=== PATIENT | male | born 1945 | race Caucasian/White ===

== ENCOUNTER 2016-11-21 12:42 | Inpatient (IN) | payer MEDICARE ==
[~2016-11-21] VITALS: Ht 182.9 cm; Wt 100.2 kg
[2016-11-21 13:40] LABS: BASOPHILS 0.3 % (0-2); EOSINOPHILS 0.7 % (0-7); HEMATOCRIT 54.8 % (42.0-54.0); HEMOGLOBIN 17.6 g/dL (13.5-17.5); IMMATURE GRANULOCYTES 0.3 % (0-5); LYMPHOCYTES 22.7 % (15-50); MCH 32.3 pg (26.0-34.0); MCHC 32.1 g/dL (31.0-37.0); MCV 100.6 fL (80.0-100.0); MEAN PLATELET VOLUME 13.4 fL (7.4-10.4); MONOCYTES 7.1 % (2-11); NEUTROPHILS 68.9 % (40-80); PLATELET COUNT 142 10x3/uL (130-400); RBC 5.45 10x6/uL (4.20-6.10); RDW 14.1 % (11.5-14.5); WBC 6.1 10x3/uL (4.8-10.8)
[2016-11-21 13:56] LABS: ALBUMIN 3.5 g/dL (3.4-5.0); ANION GAP 14.2 mmol/L (8-16); BILIRUBIN - TOTAL 0.9 mg/dL (0.2-1.3); CALCIUM 8.9 mg/dL (8.5-10.1); CARBON DIOXIDE 31.2 mmol/L (21.0-32.0); CREATININE - SERUM 1.6 mg/dL (0.6-1.3); POTASSIUM - SERUM 4.4 mmol/L (3.5-5.1); PROTEIN - SERUM 6.8 g/dL (6.4-8.2)
[2016-11-21 14:11] LABS: TROPONIN-I 0.038 ng/mL (0.000-0.060)
[2016-11-21 14:13] LABS: CREATINE KINASE 142 UL (21-232); PRO BNP 13016 pg/mL (0-125)
[2016-11-21 14:14] LABS: APTT 31.8 SECONDS (22.8-39.4); INR 1.11 (0.85-1.17); PROTIME 14.2 SECONDS (11.6-15.0)
[2016-11-21 16:17] LABS: HEMOGLOBIN A1C 6.3 % (4.8-6.0)
[2016-11-21 20:21] VITALS: BP 111/62
[2016-11-21 20:22] VITALS: BP 111/62; BMI 28.8
[2016-11-21 20:33] LABS: CKMB 4.4 U/L (0.0-3.6); CREATINE KINASE 109 UL (21-232); TROPONIN-I 0.039 ng/mL (0.000-0.060)
[2016-11-22 00:28] VITALS: BP 113/86
[2016-11-22 03:03] LABS: BASOPHILS 0 % (0-2); EOSINOPHILS 0.7 % (0-7); IMMATURE GRANULOCYTES 0.3 % (0-5); LYMPHOCYTES 23.5 % (15-50); MCH 31.8 pg (26.0-34.0); MCV 99.4 fL (80.0-100.0); MEAN PLATELET VOLUME 13.1 fL (7.4-10.4); MONOCYTES 9.6 % (2-11); NEUTROPHILS 65.9 % (40-80); PLATELET COUNT 127 10x3/uL (130-400); RBC 5.03 10x6/uL (4.20-6.10); RDW 13.9 % (11.5-14.5)
[2016-11-22 03:26] LABS: ALBUMIN 3.3 g/dL (3.4-5.0); ALKALINE PHOSPHATASE 72 U/L (46-116); ALT (SGPT) 37 U/L (10-68); CALC OSMOLALITY 286 mosm/kg (275-300); CALCIUM 8.7 mg/dL (8.5-10.1); CARBON DIOXIDE 32.7 mmol/L (21.0-32.0); CHLORIDE - SERUM 102 mmol/L (98-107); CHOL - HDL RATIO 2.6 ratio (2.3-4.9); CHOLESTEROL, TOTAL 94 mg/dL (0-200); CKMB 3.9 U/L (0.0-3.6); CREATINE KINASE 108 UL (21-232); CREATININE - SERUM 1.6 mg/dL (0.6-1.3); HDL CHOLESTEROL 36 mg/dL (32-96); LDL CHOLESTEROL 32 mg/dL (0-100); LDL-HDL RATIO 0.9 ratio (1.5-3.5); POTASSIUM - SERUM 4.4 mmol/L (3.5-5.1); PROTEIN - SERUM 6.2 g/dL (6.4-8.2); SODIUM 142 mmol/L (136-145); TRIGLYCERIDE 134 mg/dL (30-200); TROPONIN-I 0.053 ng/mL (0.000-0.060); UREA NITROGEN 22 mg/dL (7-18); eGFR NON AFRICAN AMERICAN 46 mL/min (90-120)
[2016-11-22 03:27] LABS: GLUCOSE 114 mg/dL (74-106)
[2016-11-22 04:13] VITALS: BP 122/91
[2016-11-22 08:29] LABS: CKMB 3.8 U/L (0.0-3.6); CREATINE KINASE 93 UL (21-232); TROPONIN-I 0.048 ng/mL (0.000-0.060)
[2016-11-22 08:36] VITALS: BP 127/85
[2016-11-22 11:28] VITALS: BP 112/79
[2016-11-22 17:04] VITALS: BP 91/50
[2016-11-22 20:32] VITALS: BP 108/83
[2016-11-23] VITALS (7 sets, daily range): BP systolic 102–143; BP diastolic 74–92
[2016-11-23 06:22] LABS: BASOPHILS 0 % (0-2); EOSINOPHILS 0 % (0-7); HEMATOCRIT 52.1 % (42.0-54.0); HEMOGLOBIN 16.4 g/dL (13.5-17.5); IMMATURE GRANULOCYTES 0.2 % (0-5); LYMPHOCYTES 11.4 % (15-50); MCHC 31.5 g/dL (31.0-37.0); MEAN PLATELET VOLUME 13.3 fL (7.4-10.4); MONOCYTES 3.5 % (2-11); NEUTROPHILS 84.9 % (40-80); PLATELET COUNT 133 10x3/uL (130-400); RBC 5.13 10x6/uL (4.20-6.10); RDW 13.9 % (11.5-14.5); WBC 4.8 10x3/uL (4.8-10.8)
[2016-11-23 06:23] LABS: MCV 101.6 fL (80.0-100.0)
[2016-11-23 06:39] LABS: ALBUMIN 3.1 g/dL (3.4-5.0); ANION GAP 10.9 mmol/L (8-16); BILIRUBIN - TOTAL 0.64 mg/dL (0.2-1.3); CALCIUM 8.7 mg/dL (8.5-10.1); CARBON DIOXIDE 31.9 mmol/L (21.0-32.0); CREATININE - SERUM 1.7 mg/dL (0.6-1.3); POTASSIUM - SERUM 4.8 mmol/L (3.5-5.1); PROTEIN - SERUM 6.6 g/dL (6.4-8.2)
[2016-11-24 06:05] VITALS: BP 109/78
[2016-11-24 06:17] LABS: BASOPHILS 0 % (0-2); EOSINOPHILS 0 % (0-7); HEMOGLOBIN 16.9 g/dL (13.5-17.5); IMMATURE GRANULOCYTES 0.2 % (0-5); LYMPHOCYTES 7.6 % (15-50); MCH 32.5 pg (26.0-34.0); MCHC 32.5 g/dL (31.0-37.0); NEUTROPHILS 87.2 % (40-80); PLATELET COUNT 121 10x3/uL (130-400); RDW 14.1 % (11.5-14.5)
[2016-11-24 06:25] LABS: WBC 8.3 10x3/uL (4.8-10.8)
[2016-11-24 06:53] LABS: ANION GAP 15.7 mmol/L (8-16); BILIRUBIN - TOTAL 0.53 mg/dL (0.2-1.3); CALCIUM 8.5 mg/dL (8.5-10.1); CARBON DIOXIDE 25.5 mmol/L (21.0-32.0); CREATININE - SERUM 1.6 mg/dL (0.6-1.3); POTASSIUM - SERUM 5.2 mmol/L (3.5-5.1); PROTEIN - SERUM 6.3 g/dL (6.4-8.2)
[2016-11-24 08:28] VITALS: BP 101/75; BP 122/75
--- NOTE | 2016-11-24 10:09 | EC ---
PATIENT:LOIDA GUZMAN DATE OF SERVICE: 11/21/16 SEX: M MEDICAL RECORD: [id number] DATE OF : [birth year] LOCATION:D.M2 D.213 AGE OF PATIENT: 71 ADMISSION DATE: 11/21/16 REFERRING PHYSICIAN: INTERPRETING PHYSICIAN: KRISTY SAENZ MD ECHOCARDIOGRAM REPORT ECHO CHARGES 4 ECHO COMPLETE CLINICAL DIAGNOSIS: CHF/A-FLUTTER ECHOCARDIOGRAPHIC MEASUREMENTS (adult normal given) AC root (d.<3.7cm) 3.1 LV Septum d (<1.2 cm> 1.2 Valve Excursion 1.9 LV Septum (systole) 1.6 Left Atria (s.<4.0cm> 4.8 LVPW d(<1.2cm) 1.1 RV (d.<2.3cm) 3.6 LVPW (sytole) 1.4 LV diastole(<5.6CM) 5.2 MV E-F(>70mm/sec) LV systole 4.1 LVOT Diameter 2.0 MV exc.(>10mm) Est.ejection fraction (50-75%) Pericardial Effusion N DOPPLER: LVIT A 82.0 E 91.0 LA RVSP 49.0 LVOT 48.0 AOP1/2T Asc. Ao 116 RVOT 60.0 RA PA 57.0 AV Gradient Peak 5.4 AV Mean 2.5 AV Area 1.6 MV Gradient Peak 2.6 MV Mean 1.3 MV Area COMMENTS: Records Assistant: Diya ATKINSOE Acquisition Manager:10 Dr. Boone TAPE# PACS DATE OF SERVICE: 11/23/2016 Adequate 2D echo, color flow, spectral Doppler, and M-mode. No LVH. LV internal dimensions are normal. LV is globally hypokinetic, reduced EF, estimated EF of 20%-25%. Aortic valve sclerosis without stenosis by Doppler interrogation. Left atrium is normal. Mitral valve shows no prolapse. Moderate MR. Right-sided chamber is grossly normal. Moderate TR. TRANSINT:[id number] Voice Confirmation ID: [id number] DOCUMENT ID: [id number] ECHOCARDIOGRAM REPORT [id number] LOIDA GUZMAN KRISTY SAENZ MD at 1009 CC: [id number] DICTATION DATE: 11/23/16 08 ANIMAL CARE TAKER: 11/23/16 1844 ADM IN [facility] [address] [id number]
[2016-11-24 13:42] VITALS: BP 91/71
[2016-11-24 16:05] VITALS: BP 114/86
[2016-11-24 17:37] LABS: CREATINE KINASE 27 UL (21-232); TROPONIN-I 0.025 ng/mL (0.000-0.060)
[2016-11-24 20:46] VITALS: BP 179/90; BP 92/73
[2016-11-24 23:54] LABS: CKMB 1.3 U/L (0.0-3.6); CREATINE KINASE 62 UL (21-232); TROPONIN-I 0.031 ng/mL (0.000-0.060)
[2016-11-24 23:58] VITALS: BP 99/7
[2016-11-25 04:11] VITALS: BP 115/85
[2016-11-25 04:29] LABS: BASOPHILS 0 % (0-2); EOSINOPHILS 0 % (0-7); HEMATOCRIT 53.8 % (42.0-54.0); IMMATURE GRANULOCYTES 0.1 % (0-5); LYMPHOCYTES 7.5 % (15-50); MCHC 31.6 g/dL (31.0-37.0); MCV 101.1 fL (80.0-100.0); MEAN PLATELET VOLUME 13.1 fL (7.4-10.4); NEUTROPHILS 88.4 % (40-80); PLATELET COUNT 135 10x3/uL (130-400); RBC 5.32 10x6/uL (4.20-6.10); RDW 14.1 % (11.5-14.5)
[2016-11-25 04:53] LABS: ALKALINE PHOSPHATASE 75 U/L (46-116); BILIRUBIN - TOTAL 0.48 mg/dL (0.2-1.3); CALCIUM 8.6 mg/dL (8.5-10.1); CHLORIDE - SERUM 101 mmol/L (98-107); CKMB 1.5 U/L (0.0-3.6); CREATINE KINASE 18 UL (21-232); DIGOXIN 0.58 ng/mL (0.90-2.00); GLUCOSE 207 mg/dL (74-106); MAGNESIUM - SERUM 2.4 mg/dL (1.8-2.4); PHOSPHOROUS 5.5 mg/dL (2.5-4.9); POTASSIUM - SERUM 4.9 mmol/L (3.5-5.1); PROTEIN - SERUM 6.5 g/dL (6.4-8.2); SODIUM 138 mmol/L (136-145); TROPONIN-I 0.024 ng/mL (0.000-0.060)
[2016-11-25 04:54] LABS: ALT (SGPT) 53 U/L (10-68); CALC OSMOLALITY 293 mosm/kg (275-300); CARBON DIOXIDE 32.3 mmol/L (21.0-32.0); CREATININE - SERUM 2.1 mg/dL (0.6-1.3); UREA NITROGEN 45 mg/dL (7-18); eGFR NON AFRICAN AMERICAN 33 mL/min (90-120)
[2016-11-25 09:49] VITALS: BP 121/90
[2016-11-25 13:12] VITALS: BP 111/83
[2016-11-25 20:00] VITALS: BP 113/80
[2016-11-26 01:32] VITALS: BP 115/81
[2016-11-26 04:16] VITALS: BP 119/84
[2016-11-26 06:26] LABS: BASOPHILS 0 % (0-2); EOSINOPHILS 0 % (0-7); HEMATOCRIT 52.9 % (42.0-54.0); IMMATURE GRANULOCYTES 0.3 % (0-5); LYMPHOCYTES 6.6 % (15-50); MCH 32.3 pg (26.0-34.0); MCHC 32.1 g/dL (31.0-37.0); MCV 100.4 fL (80.0-100.0); MEAN PLATELET VOLUME 12.9 fL (7.4-10.4); NEUTROPHILS 88.1 % (40-80); PLATELET COUNT 135 10x3/uL (130-400); RBC 5.27 10x6/uL (4.20-6.10); RDW 14.1 % (11.5-14.5); WBC 7.9 10x3/uL (4.8-10.8)
[2016-11-26 06:48] LABS: ALBUMIN 2.8 g/dL (3.4-5.0); BILIRUBIN - TOTAL 0.57 mg/dL (0.2-1.3); CALCIUM 8.4 mg/dL (8.5-10.1); CARBON DIOXIDE 29.2 mmol/L (21.0-32.0); CREATININE - SERUM 1.7 mg/dL (0.6-1.3); POTASSIUM - SERUM 5.2 mmol/L (3.5-5.1); PROTEIN - SERUM 6.1 g/dL (6.4-8.2); URIC ACID 10.9 mg/dL (2.6-7.2)
[2016-11-26 08:33] VITALS: BP 115/89
[2016-11-26 12:31] VITALS: BP 93/66
[2016-11-26 14:16] VITALS: Ht 182.9 cm; Wt 100.2 kg
[2016-11-26 16:55] VITALS: BP 126/76
[2016-11-26 19:00] VITALS: BP 111/71
[2016-11-27 00:20] VITALS: BP 110/69
[2016-11-27 04:37] VITALS: BP 117/68
[2016-11-27 06:53] LABS: BASOPHILS 0 % (0-2); EOSINOPHILS 0 % (0-7); HEMATOCRIT 55.6 % (42.0-54.0); HEMOGLOBIN 17.4 g/dL (13.5-17.5); IMMATURE GRANULOCYTES 0.3 % (0-5); LYMPHOCYTES 9.2 % (15-50); MCH 31.8 pg (26.0-34.0); MCHC 31.3 g/dL (31.0-37.0); MCV 101.5 fL (80.0-100.0); MEAN PLATELET VOLUME 13.3 fL (7.4-10.4); MONOCYTES 9.4 % (2-11); NEUTROPHILS 81.1 % (40-80); PLATELET COUNT 148 10x3/uL (130-400); RBC 5.48 10x6/uL (4.20-6.10); RDW 13.9 % (11.5-14.5); WBC 8.7 10x3/uL (4.8-10.8)
[2016-11-27 07:19] LABS: ANION GAP 8.6 mmol/L (8-16); BILIRUBIN - TOTAL 0.77 mg/dL (0.2-1.3); CALCIUM 8.5 mg/dL (8.5-10.1); CARBON DIOXIDE 29.9 mmol/L (21.0-32.0); CREATININE - SERUM 1.8 mg/dL (0.6-1.3); MAGNESIUM - SERUM 2.6 mg/dL (1.8-2.4); PHOSPHOROUS 4.9 mg/dL (2.5-4.9); POTASSIUM - SERUM 5.5 mmol/L (3.5-5.1); PROTEIN - SERUM 6.4 g/dL (6.4-8.2)
[2016-11-27 08:20] VITALS: BP 132/76
[2016-11-27 12:28] VITALS: BP 126/100
[2016-11-27 16:54] VITALS: BP 114/65
[2016-11-27 22:47] VITALS: BP 112/72
[2016-11-28 01:51] VITALS: BP 115/73
[2016-11-28 04:38] LABS: BASOPHILS 0 % (0-2); EOSINOPHILS 0 % (0-7); HEMATOCRIT 55.2 % (42.0-54.0); IMMATURE GRANULOCYTES 0.1 % (0-5); LYMPHOCYTES 8.5 % (15-50); MCH 32.7 pg (26.0-34.0); MCHC 32.6 g/dL (31.0-37.0); MCV 100.4 fL (80.0-100.0); MEAN PLATELET VOLUME 13.1 fL (7.4-10.4); MONOCYTES 6.4 % (2-11); PLATELET COUNT 144 10x3/uL (130-400); WBC 8.3 10x3/uL (4.8-10.8)
[2016-11-28 04:53] LABS: ANION GAP 13.3 mmol/L (8-16); BILIRUBIN - TOTAL 0.9 mg/dL (0.2-1.3); CALCIUM 8.5 mg/dL (8.5-10.1); CARBON DIOXIDE 30.1 mmol/L (21.0-32.0); CREATININE - SERUM 1.6 mg/dL (0.6-1.3); DIGOXIN 0.61 ng/mL (0.90-2.00); POTASSIUM - SERUM 5.4 mmol/L (3.5-5.1); PROTEIN - SERUM 5.9 g/dL (6.4-8.2)
[2016-11-28 05:13] VITALS: BP 117/80
[2016-11-28 08:00] VITALS: BP 112/75
--- NOTE | 2016-11-28 08:26 | CN ---
PATIENT NAME:LOIDA GUZMAN MEDICAL RECORD: [id number] : 47 LOCATION:[facility].2136 ADMIT DATE: 11/21/16 ACCOUNT: [id number] CONSULTING PHYSICIAN: KRISTY SAENZ MD REFERRING PHYSICIAN: JOSE LUIS TREJO MD DATE OF CONSULTATION: 11/22/2016 HISTORY OF PRESENT ILLNESS: This is a 71-year-old gentleman with past medical history really insignificant secondary to no physician visits, presented to the ER with the following: marked dyspnea, wheezing, weakness, and tachycardia. Historically, this has been going, the patient reported that about past 4 months, lives by himself, has problems with ADLs, frequently goes 3-4 days without eating. Marked diarrhea, some incontinence. Drinks daily until the last 2-3 weeks when he got too sick. He smokes a pack a day. PAST MEDICAL HISTORY: No significant past medical history. MEDICATIONS: None prior to admission. ALLERGIES: None known. SOCIAL HISTORY: Lives by himself. Attempts to take care of his ADLs, doubt it has been successful over the last few months. Smokes daily. Heavy drinker, none recently due to current illness. REVIEW OF SYSTEMS: The patient reports easy bruising but reports no swollen glands. The patient reports no fever, no night sweats, no significant weight gain, no significant weight loss. No significant exercise tolerance. The patient reports no dry eyes, no irritation, no vision change. Patient reports no difficulty hearing and no ear pain. Patient reports no frequent nose bleeds or nose and sinus problems. Patient reports on arm pain on exertion. No shortness of breath while lying down. No history of heart murmur. Patient reports no cough, no wheezing or coughing up blood. Patient reports no abdominal pain, no vomiting. Normal appetite. No diarrhea and not vomiting blood. No nausea and no constipation. Patient reports no incontinence. No difficulty urinating. No hematuria. No increased frequency. Patient reports no muscle aches. No weakness, no arthralgias, no back pain. No swelling of the extremities. Patient reports no abnormal mole, no jaundice, no rashes. Reports no loss of consciousness. No weakness and no numbness. No seizures, dizziness, or headaches. The patient reports no depression, no sleep disturbance, feeling safe in a relationship and no alcohol abuse. Patient reports on fatigue. Reports no runny nose or sinus pressure. No itching, no hives, and no frequent sneezing. PHYSICAL EXAMINATION: GENERAL: Somewhat unkempt gentleman, in no acute distress. VITAL SIGNS: Heart rate is 150, blood pressure 127/85. HEENT: Normocephalic and atraumatic. NECK: No bruits noted. HEART: Tachycardic, probable S3 gallop, there is a noted II/ systolic ejection murmur. LUNGS: Diminished breath sounds with expiratory wheezes. ABDOMEN: Soft and nontender. EXTREMITIES: 2+ edema, 1+ pulses. NEUROLOGIC: Grossly intact. CONSULT REPORT [id number] LOIDA GUZMAN DIAGNOSTIC DATA: ECG shows atrial flutter with variable block. IMPRESSION: Atrial flutter, cardiomyopathy. At this point in time, we will start carvedilol for both inotropic and chronotropic support. Add Aldactone. Given his history, I am not sure he would be an excellent candidate for anticoagulation. Further recommendations based on the above. TRANSINT:[id number] Voice Confirmation ID: [id number] DOCUMENT ID: [id number] KRISTY SAENZ MD at 0826 CC: [id number] DICTATION DATE: 11/22/16 0936 COMPUTER SUPPORT SPECIALIST INSTRUCTOR: 11/22/16 1908 ADM IN [facility] [address] [place] [address]
[2016-11-28 12:00] VITALS: BP 111/74
[2016-11-28 16:45] VITALS: BP 108/71
[2016-11-28 21:22] VITALS: BP 101/63
[2016-11-29 01:14] VITALS: BP 101/69
[2016-11-29 04:51] LABS: BASOPHILS 0 % (0-2); EOSINOPHILS 0 % (0-7); HEMATOCRIT 54.2 % (42.0-54.0); HEMOGLOBIN 17.5 g/dL (13.5-17.5); IMMATURE GRANULOCYTES 0.4 % (0-5); LYMPHOCYTES 6.5 % (15-50); MCH 32.2 pg (26.0-34.0); MCHC 32.3 g/dL (31.0-37.0); MCV 99.8 fL (80.0-100.0); MEAN PLATELET VOLUME 13.1 fL (7.4-10.4); NEUTROPHILS 84.1 % (40-80); PLATELET COUNT 134 10x3/uL (130-400); RBC 5.43 10x6/uL (4.20-6.10); RDW 13.7 % (11.5-14.5); WBC 7.9 10x3/uL (4.8-10.8)
[2016-11-29 05:14] LABS: ANION GAP 6.9 mmol/L (8-16); BILIRUBIN - TOTAL 0.85 mg/dL (0.2-1.3); CALCIUM 8.5 mg/dL (8.5-10.1); CARBON DIOXIDE 33.4 mmol/L (21.0-32.0); CREATININE - SERUM 1.6 mg/dL (0.6-1.3); POTASSIUM - SERUM 5.3 mmol/L (3.5-5.1); PROTEIN - SERUM 6.2 g/dL (6.4-8.2)
[2016-11-29 06:06] VITALS: BP 128/77
[2016-11-29 08:54] VITALS: BP 130/86
[2016-11-29 12:20] VITALS: BP 108/65
[2016-11-29 17:16] VITALS: BP 112/74
[2016-11-29 20:00] VITALS: BP 113/68
[2016-11-30] VITALS: BP 108/74
[2016-11-30 04:00] VITALS: BP 105/71
[2016-11-30 04:54] LABS: BASOPHILS 0 % (0-2); EOSINOPHILS 0 % (0-7); HEMATOCRIT 53.5 % (42.0-54.0); HEMOGLOBIN 16.9 g/dL (13.5-17.5); IMMATURE GRANULOCYTES 0.1 % (0-5); LYMPHOCYTES 6.7 % (15-50); MCH 31.7 pg (26.0-34.0); MCHC 31.6 g/dL (31.0-37.0); MCV 100.4 fL (80.0-100.0); MONOCYTES 9.3 % (2-11); NEUTROPHILS 83.9 % (40-80); PLATELET COUNT 120 10x3/uL (130-400); RBC 5.33 10x6/uL (4.20-6.10); RDW 13.7 % (11.5-14.5); WBC 7.3 10x3/uL (4.8-10.8)
[2016-11-30 05:08] LABS: ANION GAP 8.1 mmol/L (8-16); CALCIUM 8.4 mg/dL (8.5-10.1); CARBON DIOXIDE 35.2 mmol/L (21.0-32.0); CREATININE - SERUM 1.7 mg/dL (0.6-1.3); PHOSPHOROUS 4.7 mg/dL (2.5-4.9); POTASSIUM - SERUM 5.3 mmol/L (3.5-5.1)
[2016-11-30 08:38] VITALS: BP 116/74
[2016-11-30 12:24] VITALS: BP 126/71
[2016-11-30 15:19] LABS: APPEARANCE CLOUDY (CLEAR); BILIRUBIN NEGATIVE (NEGATIVE); COLOR YELLOW (YELLOW); GLUCOSE 1000 mg/dL (NEGATIVE); KETONE NEGATIVE (NEGATIVE); LEUKOCYTE ESTERASE NEGATIVE (NEGATIVE); NITRITE NEGATIVE (NEGATIVE); PROTEIN NEGATIVE (NEGATIVE); SPECIFIC GRAVITY 1.015 (1.005-1.020); UROBILINOGEN NORMAL (NORMAL)
[2016-11-30 15:20] LABS: BACTERIA FEW /hpf (NONE SEEN); EPITHELIAL CELLS 0-5 /hpf (0-5); WHITE CELLS - URINE 0-5 /hpf (0-5)
[2016-11-30 15:24] LABS: CREATININE - URINE 47.7 mg/dL (30-125); PROTEIN - URINE 30.5 mg/dL (0.0-11.9)
[2016-11-30 16:11] VITALS: BP 115/61
[2016-11-30 20:00] VITALS: BP 112/60
[2016-12-01] VITALS: BP 134/69
[2016-12-01 04:00] VITALS: BP 113/67
[2016-12-01 05:23] LABS: BASOPHILS 0 % (0-2); EOSINOPHILS 0.1 % (0-7); HEMATOCRIT 51.6 % (42.0-54.0); HEMOGLOBIN 16.4 g/dL (13.5-17.5); IMMATURE GRANULOCYTES 0.4 % (0-5); LYMPHOCYTES 7.2 % (15-50); MCH 31.8 pg (26.0-34.0); MCHC 31.8 g/dL (31.0-37.0); MCV 100.2 fL (80.0-100.0); MEAN PLATELET VOLUME 12.6 fL (7.4-10.4); MONOCYTES 9.1 % (2-11); NEUTROPHILS 83.2 % (40-80); PLATELET COUNT 112 10x3/uL (130-400); RBC 5.15 10x6/uL (4.20-6.10); RDW 13.6 % (11.5-14.5); WBC 7.6 10x3/uL (4.8-10.8)
[2016-12-01 06:00] LABS: CALCIUM 8.5 mg/dL (8.5-10.1); CREATININE - SERUM 1.5 mg/dL (0.6-1.3); PHOSPHOROUS 3.7 mg/dL (2.5-4.9); POTASSIUM - SERUM 4.7 mmol/L (3.5-5.1)
[2016-12-01 06:11] LABS: ANION GAP 4.7 mmol/L (8-16)
[2016-12-01 08:00] VITALS: BP 112/65
[2016-12-01 11:46] VITALS: BP 98/67
[2016-12-01 16:00] VITALS: BP 102/66
[2016-12-01] MEDS ORDERED: XARELTO20 MG PO (18:11)
[2016-12-01] MEDS ORDERED: BROVANA15 MCG/2 M INH (18:11)
[2016-12-01] MEDS ORDERED: CORDARONE200 MG PO (18:11)
[2016-12-01] MEDS ORDERED: XOPENEX 0.0.63 MG/3 UPD (18:11)
[2016-12-01] MEDS ORDERED: NICODERM C1 PATCH .1 TRANSDERM (18:11)
[2016-12-01] MEDS ORDERED: ATROVENT 0.02%2.5 ML UPD (18:11)
[2016-12-01] MEDS ORDERED: MUCINEX DM ER1 EAC1 PO (18:12)
[2016-12-01] MEDS ORDERED: FUROSEMIDE10 MG/M1 IV (18:12)
[2016-12-01] MEDS ORDERED: ACETAMINOPHEN500 M1 PO (18:12)
[2016-12-01] MEDS ORDERED: LIBRIUM5 MG PO (18:12)
[2016-12-01] MEDS ORDERED: PULMICORT0.5 MG/21 UPD (18:12)
[2016-12-01] MEDS ORDERED: COREG12.5 MG PO (18:12)
[2016-12-01] MEDS ORDERED: BENZONATATE200 MG PO (18:12)
[2016-12-01] MEDS ORDERED: LANOXIN125 MCG PO (18:12)
[2016-12-01] MEDS ORDERED: PROTONIX40 MG PO (18:13)
[2016-12-01] MEDS ORDERED: ONDANSETRON4 MG/2 M3 IV (18:13)
[2016-12-01] MEDS ORDERED: SINGULAIR10 MG PO (18:13)
[2016-12-01] MEDS ORDERED: MIRALAX17 GM PO (18:14)
[2016-12-01] MEDS ORDERED: HUMALOG 30100 UNITS/ SC (18:15)
[2016-12-01] MEDS ORDERED: FOLIC ACID1 MG PO (18:15)
[2016-12-01] MEDS ORDERED: THIAMINE HCL50 MG PO (18:15)
[2016-12-01] MEDS ORDERED: PREDNISONE10 MG PO (18:16)
== END 2016-12-01 20:32 | DRG 291 ==
LOC: D.ER 12:42 → D.M2 16:30
PROVIDERS: Emergency Medicine; Internal Medicine Nephrology; Internal Medicine Pulmonary Disease; ADMIT Family Medicine Adult Medicine
DX: I50.21 Acute systolic (congestive) heart failure (principal); J15.6 Pneumonia due to other Gram-negative bacteria; J69.0 Pneumonitis due to inhalation of food and vomit; J13 Pneumonia due to Streptococcus pneumoniae; I48.92 Unspecified atrial flutter; F17.203 Nicotine dependence unspecified, with withdrawal; J44.1 Chronic obstructive pulmonary disease with (acute) exacerbation; J44.0 Chronic obstructive pulmonary disease with (acute) lower respiratory infection; I42.9 Cardiomyopathy, unspecified; E87.5 Hyperkalemia; E11.40 Type 2 diabetes mellitus with diabetic neuropathy, unspecified; E11.21 Type 2 diabetes mellitus with diabetic nephropathy; E11.65 Type 2 diabetes mellitus with hyperglycemia; F10.20 Alcohol dependence, uncomplicated; I08.1 Rheumatic disorders of both mitral and tricuspid valves; J31.0 Chronic rhinitis; K74.60 Unspecified cirrhosis of liver; R33.9 Retention of urine, unspecified

== ENCOUNTER 2016-12-01 20:29 | Inpatient (IN) | payer MEDICARE ==
[~2016-12-01] VITALS: Ht 182.9 cm; Wt 90.7 kg
--- NOTE | 2016-12-01 00:15 | NUR ---
RESTING QUIETLY, EYES CLOSED NO S/S OF ACUTE DISTRESS.
[~2016-12-01 20:29] MED LIST: ACETAMINOPHEN500 M1 PO; ATROVENT 0.02%2.5 ML UPD; BENZONATATE200 MG PO; BROVANA15 MCG/2 M INH; CORDARONE200 MG PO; COREG12.5 MG PO; FOLIC ACID1 MG PO; FUROSEMIDE10 MG/M1 IV; HUMALOG 30100 UNITS/ SC; LANOXIN125 MCG PO; LIBRIUM5 MG PO; MIRALAX17 GM PO; MUCINEX DM ER1 EAC1 PO; NICODERM C1 PATCH .1 TRANSDERM; ONDANSETRON4 MG/2 M3 IV; PREDNISONE10 MG PO; PROTONIX40 MG PO; PULMICORT0.5 MG/21 UPD; SINGULAIR10 MG PO; THIAMINE HCL50 MG PO; XARELTO20 MG PO; XOPENEX 0.0.63 MG/3 UPD
--- NOTE | 2016-12-01 21:04 | NUR ---
RECIEVED PT BY W/C FROM STAFF FROM [employer] [facility]. PT ASSISTED TO BED. 02 @ 3L VIA N/C. PARRA CATH. PT HAS NO COMPLAINTS OR QUESTIONS AT THIS TIME. BED IN LOWEST POSITION AND CALL LIGHT WITHIN REACH.
[2016-12-01 22:07] VITALS: BP 123/77
[2016-12-01 22:25] VITALS: BP 123/77; BMI 27.2
--- NOTE | 2016-12-01 23:57 | NUR ---
OPAL VILCHIS DID ASSESSMNET.
--- NOTE | 2016-12-02 | NUR ---
PT IN BED WITH HOB UP FOR COMFORT. EYES CLOSED. CHEST RISING AND FALLING. 02 @ 3L VIA N/C. BED IN LOWEST POSITION AND CALL LIGHT WITHIN REACH.
--- NOTE | 2016-12-02 04:00 | NUR ---
PT IN BED WITH HOB UP FOR COMFORT. EYES CLOSED. RESPIRATIONS EVEN AND UNLABORED. BED IN LOWEST POSITION AND CALL LIGHT WITHIN REACH.
--- NOTE | 2016-12-02 05:03 | NUR ---
PT RESTING QUIETLY, NO S/S OF ACUTE DISTRESS. RESPIRATIONS REGULAR AND UNLABORED. PT ABLE TO PROPEL W/C INDEPENDENTLY IN HALLWAY. PT STATES HIS PAIN IS FINALLY MANAGED.
--- NOTE | 2016-12-02 05:47 | NUR ---
RIGHT WRIST SALINE LOC FLUSHES EASILY.
[2016-12-02 05:51] LABS: BASOPHILS 0 % (0-2); EOSINOPHILS 0.1 % (0-7); HEMATOCRIT 51.6 % (42.0-54.0); HEMOGLOBIN 16.8 g/dL (13.5-17.5); IMMATURE GRANULOCYTES 0.1 % (0-5); LYMPHOCYTES 5.7 % (15-50); MCH 32.4 pg (26.0-34.0); MCHC 32.6 g/dL (31.0-37.0); MCV 99.4 fL (80.0-100.0); MEAN PLATELET VOLUME 13.2 fL (7.4-10.4); MONOCYTES 10.1 % (2-11); PLATELET COUNT 127 10x3/uL (130-400); RBC 5.19 10x6/uL (4.20-6.10); RDW 13.5 % (11.5-14.5); WBC 7.4 10x3/uL (4.8-10.8)
[2016-12-02 06:03] LABS: CALCIUM 8.5 mg/dL (8.5-10.1); CARBON DIOXIDE 38.8 mmol/L (21.0-32.0); CREATININE - SERUM 1.2 mg/dL (0.6-1.3); POTASSIUM - SERUM 4.8 mmol/L (3.5-5.1)
--- NOTE | 2016-12-02 08:00 | NUR ---
SHIFT ASSMT COMPLETED.O2 ON.BREAKFAST TRAY GIVEN.CL IN REACH.DENIES NEEDS.
[2016-12-02 09:25] VITALS: BP 111/71
--- NOTE | 2016-12-02 12:00 | NUR ---
DENIES NEEDS.MEAL TRAY GIVEN.
[2016-12-02 14:19] VITALS: Ht 182.9 cm; Wt 90.7 kg
--- NOTE | 2016-12-02 16:00 | NUR ---
RESTING QUIETLY.CL IN REACH.
--- NOTE | 2016-12-02 19:40 | NUR ---
INSTRUCT PT USE CALL LIGHT, WHEN NEED HELP.
--- NOTE | 2016-12-02 19:45 | NUR ---
FROM DAY SHIFT NURSE REPORT PT HAS BEEN 8 HOURS NO URINE SINCE TAKE OUT PARRA CATHETER, PERFORM BLADDLER SCAN IS 674ML URINE IN BLADDLER. TALK TO CHARGE NURSE, SUGGEST TAKE PT TO BATHROOM, AND PT HAS SOME DARK BROWN URINE.
[2016-12-02 20:29] LABS: APPEARANCE HAZY (CLEAR); BILIRUBIN NEGATIVE (NEGATIVE); COLOR BROWN (YELLOW); GLUCOSE 500 mg/dL (NEGATIVE); KETONE NEGATIVE (NEGATIVE); LEUKOCYTE ESTERASE TRACE (NEGATIVE); NITRITE NEGATIVE (NEGATIVE); PROTEIN TRACE mg/dL (NEGATIVE); UROBILINOGEN NORMAL (NORMAL)
[2016-12-02 20:32] LABS: RED CELLS - URINE >50 /hpf (0-5)
[2016-12-02 20:33] LABS: BACTERIA FEW /hpf (NONE SEEN)
[2016-12-02 21:02] VITALS: BP 137/74
--- NOTE | 2016-12-03 04:40 | NUR ---
PT REST QUIETLY IN BED, BED LOW, CALL LIGHT WITHIN REACH.
[2016-12-03 06:27] LABS: BASOPHILS 0 % (0-2); EOSINOPHILS 0.4 % (0-7); HEMATOCRIT 51.6 % (42.0-54.0); HEMOGLOBIN 16.6 g/dL (13.5-17.5); IMMATURE GRANULOCYTES 0.3 % (0-5); LYMPHOCYTES 16.3 % (15-50); MCH 32.1 pg (26.0-34.0); MCHC 32.2 g/dL (31.0-37.0); MCV 99.8 fL (80.0-100.0); MEAN PLATELET VOLUME 12.8 fL (7.4-10.4); MONOCYTES 9.8 % (2-11); NEUTROPHILS 73.2 % (40-80); PLATELET COUNT 109 10x3/uL (130-400); RBC 5.17 10x6/uL (4.20-6.10); RDW 13.6 % (11.5-14.5); WBC 7.3 10x3/uL (4.8-10.8)
[2016-12-03 06:49] LABS: CALC OSMOLALITY 288 mosm/kg (275-300); CALCIUM 8.3 mg/dL (8.5-10.1); CARBON DIOXIDE 36.5 mmol/L (21.0-32.0); CHLORIDE - SERUM 100 mmol/L (98-107); GLUCOSE 142 mg/dL (74-106); POTASSIUM - SERUM 4.5 mmol/L (3.5-5.1); SODIUM 140 mmol/L (136-145); UREA NITROGEN 36 mg/dL (7-18); eGFR NON AFRICAN AMERICAN 78 mL/min (90-120)
--- NOTE | 2016-12-03 08:00 | NUR ---
SHIFT ASSMT COMPLETED.SET-UP FOR MEAL PROVIDED.CL IN REACH.
[2016-12-03 09:06] VITALS: BP 121/75
--- NOTE | 2016-12-03 12:00 | NUR ---
UP IN WC EATING LUNCH.ALARM ON.
--- NOTE | 2016-12-03 16:00 | NUR ---
RESTING QUIETLY.CL IN REACH.
--- NOTE | 2016-12-03 17:02 | NUR ---
CARE TEAM MEETING: PATIENT NEW TO UNIT AND WILL BE RA AT NEXT MEETING. WILL CONTINUE TO FOLLOW WITH PATIENT UNTIL DISCHARGED
--- NOTE | 2016-12-03 19:52 | NUR ---
PT RECEIVED IN BED WITH EYES CLOSED AND CHEST RISING. EASILY AROUSED TO VERBAL STIMUILI. NO CONCERN OR COMPLAINTS MADE KNOWN. CALL LIGHT IN REACH. WILL CONTINUE TO OBSERVE.
[2016-12-03 19:54] VITALS: BP 130/63
--- NOTE | 2016-12-03 23:00 | NUR ---
PT IN BED WITH EYES CLOSED AND CHEST RISING. NO SIGN/SYMPTOMS OF DISTRESS NOTED. CALL LIGHT IN REACH. WILL CONTINUE TO OBSERVE.
--- NOTE | 2016-12-04 01:41 | NUR ---
PT IN BED WITH EYES CLOSED AND CHEST RISING. NO SIGN/SYMPTOMS OF DISTRESS NOTED. CALL LIGHT IN REACH. WILL CONTINUE TO OBSERVE.
--- NOTE | 2016-12-04 06:42 | NUR ---
PT IN BED WITH EYES CLOSED AND CHEST RISING. RECEIVED AM MEDICATIONS PER MAR WITHOUT DIFFICULTY. BRIEF AND BEDDING CHANGED DUE TO INCONTINENCE. NO OTHER CONCERNS NOTED AT THIS TIME. CALL LIGHT IN REACH.
--- NOTE | 2016-12-04 08:10 | NUR ---
TELEMETRY CALLED,HR DOWN TO 49BPM.ASLEEP,AROUSES EASILY.DENIES DISTRESS.BP LEFT ARM 125/67,RT ARM 121/62.O2 INTACT AT 2L/MIN PER NC.WILL OBSERVE FOR CHANGES.
[2016-12-04 09:42] VITALS: BP 127/72
--- NOTE | 2016-12-04 11:00 | NUR ---
INCONTINENT OF BOWEL AND BLADDER.CLEANED AND BUTT PASTE APPLIED FOR BLANCHABLE REDDNESS.UP TO WC PER PT.
--- NOTE | 2016-12-04 19:25 | NUR ---
PT RECEIVED IN BED WITH EYES OPEN WATCHING TV. NO CONCERNS OR COMPLAINTS MADE KNOWN. CALL LIGHT IN REACH. WILL CONTINUE TO OBSERVE.
[2016-12-04 22:11] VITALS: BP 123/70
--- NOTE | 2016-12-04 23:32 | NUR ---
PT IN BED WITH EYES CLOSED AND CHEST RISING. HS MEDICATIONS GIVEN PER MAR. 2 UNITS OF INSULIN GIVEN PER SLIDING SCALE. INCONTINENT OF BLADDER WITH PERICARE GIVEN AND BRIEF CHANGED. NO OTHER CONCERNS NOTED. CALL LIGHT IN REACH. WILL CONTINUE TO OBSERVE.
--- NOTE | 2016-12-05 02:42 | NUR ---
PT IN BED WITH EYES CLOSED LYING ON RIGHT SIDE AND REPOSITIONED TO LEFT SIDE. NO CONCERNS NOTED AT THIS TIME. CALL LIGHT IN REACH. WILL CONTINUE TO OBSERVE.
[2016-12-05 07:17] LABS: BASOPHILS 0 % (0-2); EOSINOPHILS 0.4 % (0-7); HEMATOCRIT 50.6 % (42.0-54.0); HEMOGLOBIN 16.1 g/dL (13.5-17.5); IMMATURE GRANULOCYTES 0.3 % (0-5); LYMPHOCYTES 15.7 % (15-50); MCHC 31.8 g/dL (31.0-37.0); MCV 100.6 fL (80.0-100.0); MEAN PLATELET VOLUME 13.1 fL (7.4-10.4); MONOCYTES 6.3 % (2-11); NEUTROPHILS 77.3 % (40-80); PLATELET COUNT 118 10x3/uL (130-400); RBC 5.03 10x6/uL (4.20-6.10); RDW 13.6 % (11.5-14.5); WBC 7.8 10x3/uL (4.8-10.8)
[2016-12-05 07:53] LABS: ANION GAP 7.8 mmol/L (8-16); CALCIUM 8.7 mg/dL (8.5-10.1); CARBON DIOXIDE 38.6 mmol/L (21.0-32.0); CREATININE - SERUM 1.1 mg/dL (0.6-1.3); POTASSIUM - SERUM 4.4 mmol/L (3.5-5.1)
[2016-12-05 09:01] VITALS: BP 140/79
--- NOTE | 2016-12-05 14:13 | NUR ---
Nutrition Follow Up: Chart reviewed. Pt is eating 100% meal avg on a renal ADA diet. +BM 12/04/16. Wt stable. Labs reviewed - Glucose continues elevated. Meds noted including Thiamine, Prednisone, Lasix, Humalog. Rec continue current diet. RD following.
--- NOTE | 2016-12-05 17:15 | NUR ---
SITTING UP IN BED EATING SLUPPER. HAS TRIED TO KEEP BLE ELEVATED IN BED MUCH POSSIBLE BUT HE STILL HAS 3+-4+ EDEMA NOTED TO BLE. WEARS OXYGEN 2L NC. TELEMETRY IN USE. HR DID DROP TO 48 AT 1215 TODAY. PT WAS ASYMPTOMATIC. DR HOLM NOTIFIED. NO NEW ORDERS.
--- NOTE | 2016-12-05 17:20 | NUR ---
PT REST IN BED, DENIES NEED.
[2016-12-05 19:00] VITALS: BP 122/54
--- NOTE | 2016-12-05 19:30 | NUR ---
MONITORING STATION REPORTED PATIENT HR TO BE FLUTTER 37 DURING REPORT. VISITED WITH PATIENT WHO DENIED DISCOMFORT OR DISTRESS. AUTO TRANSMISSION MECHANIC NOW REPORTS PATIENT HE IS STAYING IN FLUTTER @ 37BPM. CALLED DR. HOLM WHO ORDERED STAT DIGOXIN LAB AND CONSULT SPIRAL WINDING MACHINE HELPER. CALL CARDIOLOGY SERVICE. DR. DENISE MERCHANDISE COMPLAINT ADJUSTER.
--- NOTE | 2016-12-05 19:50 | NUR ---
2ND CALL PLACED TO CARDIOLOGY SERVICE TO JOSH DENISE.
--- NOTE | 2016-12-05 19:55 | NUR ---
DR. DENISE RETURNED CALL. TOLD HIM PATIENT IS CURRENTLY ON CORDARONE, COREG AND DIGOXIN. HE ORDERED COREG AND DIGOXIN D/C'D. WILL MONITOR PATIENT CLOSELY AWAITING HR TO RETURN TO PATIENT'S BASELINE OF CAF/FLUTTER IN 50'S AND 60'S. INSTRUCTED PRIMARY NURSE TO TAKE VS Q4H DURING THE NIGHT AND TO OBTAIN TELEMETRY REPORT Q2H.
--- NOTE | 2016-12-05 20:05 | NUR ---
PT PULSE RATE IS 35, REPORT TO CHARGE NURSE, CHARGE NURSE TALK TO THE DOCTOR, AND D/C COREG, DIGOXIN. WILL CHECK PT VITAL SIGN Q4 HOURS. AND MONITOR CLOSELY.
--- NOTE | 2016-12-05 21:20 | NUR ---
PT STATE HE LIKE TO HAVE ICE CREAM FOR SNACK, ICE CREAM GIVEN.
--- NOTE | 2016-12-06 00:10 | NUR ---
CHECK PT VITAL SIGN:T-98.1 BP-121/72 P-55 SPO2-98% R-16 NO PAIN.
--- NOTE | 2016-12-06 01:11 | NUR ---
ASSISTED PT TO BATHROOM AND BACK TO BED.
[2016-12-06 01:47] VITALS: BP 121/72
--- NOTE | 2016-12-06 05:07 | NUR ---
PT REST IN BED WITH EYE OPEN, DENIES NEEDS.
[2016-12-06 06:34] VITALS: BP 134/78
[2016-12-06 08:00] VITALS: BP 140/80
--- NOTE | 2016-12-06 08:00 | NUR ---
SHIFT ASSMT COMPLETED.CL IN REACH.UP OOB AND TO BATHROOM TO WC;WAS INCONTINENT.CLEANED AND BREAKFAST GIVEN.
--- NOTE | 2016-12-06 08:50 | NUR ---
CALL FROM TELEMTRY ;HR 37,DENIES ANY SYMPTOMS OF PROBLEMS ,ILLNESS OR DIZZIENESS.WAS SITTING UP IN WC.MOD ASSIST BACK TO BED.CL IN REACH.
--- NOTE | 2016-12-06 09:02 | NUR ---
TELEMETRY NOTIFIED OF HEART RATE AND STATED 50 BTS/MIN ON MONITOR WHILE LYING DOWN.
--- NOTE | 2016-12-06 10:19 | NUR ---
rechecked with telemetry and stated pulse 33, NOTIFIED.STATES TO CONTINUE TO HOLD ALL HEART MEDS.PT RESTING QUIETLY.IN BED;DENIES ANY C/O.
[2016-12-06 10:30] VITALS: BP 130/98
--- NOTE | 2016-12-06 12:00 | NUR ---
TELEMETRY 54.A-FLUAGAPITOER.EATING LUNCH.
--- NOTE | 2016-12-06 16:00 | NUR ---
RESTING QUIETLY.TELEMETRY 37 ,DENIES NEEDS.
--- NOTE | 2016-12-06 19:30 | NUR ---
PERFORM SHIFT ASSMT, PT PULSE 36, REPORT TO CHARGE NURSE, MONITOR CLOSELY.
--- NOTE | 2016-12-07 00:20 | NUR ---
CHECK TELEMETRY, 36, A- FLUTTER. REPORTED TO CHARGE NURSE.
[2016-12-07 00:21] VITALS: BP 128/51
--- NOTE | 2016-12-07 00:45 | NUR ---
PATIENT RESTING IN BED, EYES CLOSED. RESPIRATIONS ARE DEEP, QUIET AND UNLABORED. MONITORING STATION REPORTS PATIENT CONTINUES IN AFIB/FLUTTER @ 37 BPM, WITH OCCASIONAL RATES OF 40 AND 41. DAYD SHIFT CHARGE REPORTED AT SHIFT CHANGE THAT DR. DENISE THINKS WITH PERSISTENT LOW RATE IS MEDICATION EFFECT THAT JUST NEEDS TIME TO WEAR OFF. BP'S HAVE BEEN ACCEPTABLE AND PATIENT EARLIER DENIED DISTRESS WHEN AWAKE EARLIER ON THIS SHIFT.
--- NOTE | 2016-12-07 01:10 | NUR ---
CHECK VITAL SIGNS: T-97.8 BP-121/52, P-34, SPO2-97% R-16.
--- NOTE | 2016-12-07 04:50 | NUR ---
PT REST QUIETLY IN BED, EYE CLOSE, BED LOW, CALL LIGHT WITHIN REACH.
[2016-12-07 08:00] VITALS: BP 132/72
--- NOTE | 2016-12-07 19:55 | NUR ---
PT. IN BED WITH HOB UP FOR COMFORT AND IS WATCHING TV. ASSESSMENT COMPLETED. NO VOICED NEEDS AT THIS TIME. PT. KEEPING LE'S ELEVATED UP ON PILLOW TO HELP WITH SWELLING. CALL LIGHT WITHIN REACH.
--- NOTE | 2016-12-07 23:07 | NUR ---
PT. IN BED WITH HOB UP FOR COMFORT AND LE'S ALSO ELEVATED UP ON PILLOWS TO HELP WITH PITTING EDEMA. EYES CLOSED AND RESP. EVEN. O2 ON AT 2L/MIN VIA N/C. PT. HAS BEEN USING HIS URINAL THIS SHIFT SO FAR. CALL LIGHT REMAINS WITHIN REACH.
[2016-12-07 23:20] VITALS: BP 149/88
--- NOTE | 2016-12-08 03:10 | NUR ---
PT. IN BED WITH HOB UP FOR COMFORT, LUE'S ELEVATED UP ON PILLOWS TO HELP WITH EDEMA. EYES CLOSED AND RESP. EVEN. O2 ON VIA N/C AT 2LMIN. CALL LIGHT WITHIN REACH.
[2016-12-08 06:41] LABS: BASOPHILS 0 % (0-2); EOSINOPHILS 0.6 % (0-7); HEMATOCRIT 48.9 % (42.0-54.0); HEMOGLOBIN 15.6 g/dL (13.5-17.5); IMMATURE GRANULOCYTES 0.3 % (0-5); LYMPHOCYTES 17.9 % (15-50); MCH 31.9 pg (26.0-34.0); MCHC 31.9 g/dL (31.0-37.0); MEAN PLATELET VOLUME 13.3 fL (7.4-10.4); MONOCYTES 9.6 % (2-11); NEUTROPHILS 71.6 % (40-80); PLATELET COUNT 116 10x3/uL (130-400); RBC 4.89 10x6/uL (4.20-6.10); RDW 13.7 % (11.5-14.5); WBC 7.2 10x3/uL (4.8-10.8)
[2016-12-08 06:55] LABS: CALC OSMOLALITY 287 mosm/kg (275-300); CALCIUM 8.5 mg/dL (8.5-10.1); CARBON DIOXIDE 37.2 mmol/L (21.0-32.0); CHLORIDE - SERUM 101 mmol/L (98-107); GLUCOSE 120 mg/dL (74-106); POTASSIUM - SERUM 3.8 mmol/L (3.5-5.1); SODIUM 142 mmol/L (136-145); UREA NITROGEN 24 mg/dL (7-18); eGFR NON AFRICAN AMERICAN 78 mL/min (90-120)
--- NOTE | 2016-12-08 07:37 | NUR ---
RESTING QUIETLY IN BED CALL LIGHT IN REACH
--- NOTE | 2016-12-08 07:38 | NUR ---
RESTING QUIETLY IN BED CALL LIGHT IN REACH
[2016-12-08 09:11] VITALS: BP 151/82
--- NOTE | 2016-12-08 16:06 | NUR ---
PT IN ROOM SITTING UP IN CHAIR VISITING WITH FAMILY
--- NOTE | 2016-12-08 17:38 | NUR ---
PT SITTING UP IN BED WATCHING TV
--- NOTE | 2016-12-08 19:25 | NUR ---
PT. IN BED WITH HOB AND FOB ELEVATED. ASSESSMENT COMPLETED. NO VOICED NEEDS AT THIS TIME. ASSISTED PT. TO BATHROOM TO URINATE AND THEN HE STATED HE NEEDED TO SIT BECAUSE HE WAS NEEDING TO HAVE A BM. PT. TO USE CALL LIGHT CORD WHEN FINISHED.
[2016-12-08 20:08] VITALS: BP 126/58
--- NOTE | 2016-12-08 23:03 | NUR ---
PT. IN BED LYING ON HIS LEFT SIDE WITH HOB UP FOR COMFORT. LE'S ELEVATED ON PILLOW TO HELP DECREASE EDEMA. EYES CLOSED AND RESP. DEEP AND EVEN. CALL LIGHT WITHIN REACH.
--- NOTE | 2016-12-09 03:02 | NUR ---
PT. IN BED LYING ON HIS LEFT SIDE WITH HOB/FOB ELEVATED. EYES CLOSED AND RESP. DEEP AND EVEN. CALL LIGHT WITHIN REACH.
--- NOTE | 2016-12-09 06:27 | NUR ---
PT. IN BED LYING ON HIS LEFT SIDE WITH EYES CLOSED AND RESP. EVEN. PT. AWAKENED EASILY FOR MORNING FSBS AND MEDS. NO VOICED NEEDS AT THIS TIME. CALL LIGHT WITHIN REACH.
--- NOTE | 2016-12-09 07:14 | NUR ---
RESTING QUIETLY IN BED WITH EYES CLOSED. O2 2LNC IN PLACE. 4+ EDEMA TO BLE. NO WEEPING NOTED TO BLE.
[2016-12-09 08:00] VITALS: BP 147/69
--- NOTE | 2016-12-09 10:41 | NUR ---
SITTING IN W/C. DENIES PAIN OR INCREASED SOB.
--- NOTE | 2016-12-09 13:38 | NUR ---
Nutrition Follow Up: Pt is eating 100% meal avg on a renal ADA diet. +BM 12/09/16. No new wt to assess. Labs reviewed - Glucose elevated. Meds noted including Thiamine, Prednisone, Lasix, Humalog. Rec continue current diet. RD following.
--- NOTE | 2016-12-09 13:46 | NUR ---
RESTING IN BED. BLE ELEVATED SLIGHTLY IN BED. USES URINAL AT TIMES.
--- NOTE | 2016-12-09 19:20 | NUR ---
PT WATCHING TV, ASSESSMENT PER FLOW SHEET, PT REPORTS FLATUS, BM TODAY AND USING URINAL FOR VOIDING, PT DENIES NEEDS OR PAIN AT THIS TIME
--- NOTE | 2016-12-09 20:43 | NUR ---
PT WATCHING TV, ADM 2100 MEDS PO PER MD ORDERS, SEE EMAR, INFORMED PT THAT I WILL BE BACK TO DO FSBS, PT VERBALIZES UNDERSTANDING, DENIES NEEDS AT THIS TIME
--- NOTE | 2016-12-09 21:05 | NUR ---
OBTAINED FSBS, SNACK SERVED, PT DENIES NEEDS OR PAIN
[2016-12-09 21:39] VITALS: BP 148/87
--- NOTE | 2016-12-09 22:10 | NUR ---
PT AWAKE, PT UP TO SIDE OF BED, BEDSIDE TABLE IN FRONT OF PT, PT GETTING READY TO FILL OUT MENU, INFORMED PT TO LEAVE IT AT THE END OF THE TABLE AND I WILL COME BACK SHORTLY TO PICK IT UP, PT VERBALIZES UNDERSTANDING, DENIES NEEDS AT THIS TIME
--- NOTE | 2016-12-10 00:02 | NUR ---
PT RESTING WITH EYES CLOSED, RESP QUIET, NO DISTRESS NOTED, LEFT UNDISTURBED AT THIS TIME
--- NOTE | 2016-12-10 02:04 | NUR ---
PT WAS OBSERVED PT LANDED ON FLOOR IN SITTING POSITION. PT WAS TRANSFERRING FROM BED TO W/C, MISSED THE WHEELCHAIR AND LANDED ON BUTTOCK, PT DENIES INJURY OR PAIN. PT CALVIN WITHOUT LIMITATIONS OR PAIN. NO CHANGE IN LOC STAFF WAS ACTIVELY WALKING INTO ROOM.
--- NOTE | 2016-12-10 04:11 | NUR ---
PT RESTING WITH EYES CLOSED, RESP QUIET, NO DISTRESS NOTED, LEFT UNDISTURBED AT THIS TIME
--- NOTE | 2016-12-10 05:43 | NUR ---
PT RESTING WITH EYES CLOSED, AROUSES TO SOFT VERBAL STIMULATION, ADM 0600 MEDS PO PER MD ORDERS, PT UP TO BR VIA WC WITH ASSISTANCE, PT VOIDED BY SELF WITH NO DIFFICULTY, PT BACK TO BED, DENIES FURTHER NEEDS OR PAIN
[2016-12-10 06:12] LABS: BASOPHILS 0.1 % (0-2); EOSINOPHILS 0.9 % (0-7); HEMATOCRIT 49.6 % (42.0-54.0); HEMOGLOBIN 15.8 g/dL (13.5-17.5); IMMATURE GRANULOCYTES 0.3 % (0-5); LYMPHOCYTES 18.5 % (15-50); MCH 31.4 pg (26.0-34.0); MCHC 31.9 g/dL (31.0-37.0); MCV 98.6 fL (80.0-100.0); MEAN PLATELET VOLUME 12.7 fL (7.4-10.4); MONOCYTES 9.9 % (2-11); NEUTROPHILS 70.3 % (40-80); PLATELET COUNT 126 10x3/uL (130-400); RBC 5.03 10x6/uL (4.20-6.10); RDW 13.6 % (11.5-14.5); WBC 7.6 10x3/uL (4.8-10.8)
[2016-12-10 06:30] LABS: CALC OSMOLALITY 287 mosm/kg (275-300); CALCIUM 8.6 mg/dL (8.5-10.1); CARBON DIOXIDE 35.6 mmol/L (21.0-32.0); CHLORIDE - SERUM 101 mmol/L (98-107); GLUCOSE 117 mg/dL (74-106); POTASSIUM - SERUM 3.8 mmol/L (3.5-5.1); SODIUM 142 mmol/L (136-145); UREA NITROGEN 23 mg/dL (7-18); eGFR NON AFRICAN AMERICAN 78 mL/min (90-120)
--- NOTE | 2016-12-10 07:00 | NUR ---
SHIFT REPORT TO DAY SHIFT
--- NOTE | 2016-12-10 08:00 | NUR ---
SHIFT ASSMT COMPLETED.DENIES NEEDS.MEAL SET UP PROVIDED.CL IN REACH.
[2016-12-10 08:18] VITALS: BP 144/72
--- NOTE | 2016-12-10 12:00 | NUR ---
SET UP FOR MEAL PROVIDED.
--- NOTE | 2016-12-10 17:07 | NUR ---
CARE TEAM MEETING: LAMIN DISCHARGE DATE IS 12/16/16. PLANS ARE FOR POSSIBLE SNF REFERRAL , WILL CONTINUE TO FOLLOW WITH PATIENT UNTIL DISCHARGED
[2016-12-10 19:07] VITALS: BP 144/68
--- NOTE | 2016-12-10 19:40 | NUR ---
PT IN BED WITH HOB UP FOR COMFORT. WATCHING TV. 02 @ 2L VIA N/C. NO IV. PAIN LEVEL 0/10. MOD. TO MAX. ASSIST. 4+ EDEMA LOWER EXT. FSBS ACHS. INCONTINENT AT TIMES. BED IN LOWEST POSITION AND CALL LIGHT WITHIN REACH. BED ALARM ON.
--- NOTE | 2016-12-10 23:40 | NUR ---
PT IN BED WITH HOB UP FOR COMFORT. EYES CLOSED. CHEST RISING AND FALLING. BED IN LOWEST POSITION AND CALL LIGHT WITHIN REACH.
--- NOTE | 2016-12-11 03:40 | NUR ---
PT IN BED WITH HOB UP FOR COMFORT. EYES CLOSED. RESPIRATIONS EVEN AND UNLABORED. BED IN LOWEST POSITION AND CALL LIGHT WITHIN REACH.
--- NOTE | 2016-12-11 08:00 | NUR ---
SHIFT ASSMT COMPLETED.DENIES NEEDS.POS UP IN BED FOR BREAKFAST.EDEMA BILAT FEET DECREASED.WINKLES IN SKIN.CL IN REACH.
[2016-12-11 11:44] VITALS: BP 134/68
--- NOTE | 2016-12-11 12:00 | NUR ---
LUNCH GIVEN.DENIES NEEDS.
--- NOTE | 2016-12-11 12:07 | RHP ---
PATIENT: LOIDA GUZMAN MEDICAL RECORD: [id number] ACCOUNT: [id number] LOCATION:[facility]1118 : 46 ADMISSION DATE: 12/01/16 REHABILITATION HISTORY AND PHYSICAL EXAMINATION POST ADMISSION PHYSICIAN EXAMINATION Post-admission Physical Examination and History and Physical DATE OF ADMISSION TO THE REHAB: 12/01/2016 ADMITTING DIAGNOSES: Acute exacerbation of chronic obstructive pulmonary disease. HISTORY OF PRESENT ILLNESS: The patient was admitted with inpatient rehab for acute exacerbation of COPD. This a 71-year-old gentleman has not been seen by a medical physician 15 years or more, who presents to ED with ongoing shortness of breath and swelling, progressively ____, who was admitted to the acute inpatient rehab, has been followed by cardiology, pulmonology and nephrology. The patient has a history of alcohol abuse and has elevated ammonia level. He has a history of diabetes and elevated blood glucose with sliding scale coverage. He has been noted to be lethargic, unable to participate in therapy. He is now more awake and able to participate, requiring therapy. He lives alone and was independent ADLs and mobility. He is currently mod to min assist to total assist with ADLs and max assist to total assist with mobility. He plans to return home alone and his daughter plans ____ she will be able protect more often and definitely, inpatient rehabilitation to do that. COMORBIDITIES: Include left pleural effusion, acute systolic congestive heart failure, moderate pulmonary hypertension, tachycardia, hyperglycemia, chest pain, diarrhea, ETOH dependence, acute fever, chronic kidney disease, positive D-dimer, hyperammonemia levels, bibasilar infiltrates, type 2 diabetes, peripheral arterial disease, cirrhosis, atrial flutter, cardiomyopathy, hyperkalemia, erythrocytosis, and prominent atrophy and small vessel disease per CT scan. PAST MEDICAL HISTORY: No significant past medical history prior to admission PAST SURGICAL HISTORY: None. ALLERGIES: No known drug allergies. CURRENT MEDICATIONS: Include thiamine 100 mg daily, folic acid 1 mg daily, prednisone 10 mg daily, Protonix 40 mg daily. He is on a sliding scale of insulin. He is on polyethylene glycol 17 grams in 8 ounces of water daily, Zofran 4 mg q.4 hours p.r.n. nausea and vomiting, Singulair 10 mg q.h.s., Mucinex 600 mg b.i.d., Pulmicort 0.5 mg b.i.d., Tessalon Perles 200 mg t.i.d. p.r.n., Lasix 20 mg IV b.i.d., Librium 10 mg q.i.d. p.r.n., DTs, Tylenol 500 mg q.6 hours p.r.n. elevated temperature, digoxin 0.125 mg daily, carvedilol 12.5 mg daily, amiodarone 200 mg b.i.d., Xarelto 20 mg daily. He is on Nicoderm patch. He is on Xopenex 0.63 mg q.4 hours p.r.n. He is on Brovana 15 mcg b.i.d. HABITS: Does have a history of alcohol and tobacco use. FAMILY HISTORY: Noncontributory. HISTORY AND PHYSICAL [id number] LOIDA GUZMAN SOCIAL HISTORY: Once again, the patient hopes to return back home. His daughter plans to return and live closer to home. REVIEW OF SYSTEMS: GENERAL: Does complain of weakness and fatigue. HEENT: Denies cold, cough, or congestion. CARDIOVASCULAR: Denies any chest pain. LUNGS: Does complain of shortness of breath. PHYSICAL EXAMINATION: VITAL SIGNS: Stable, afebrile. GENERAL: Elderly gentleman, in no acute distress, alert upon exam. HEENT: Normocephalic, atraumatic. Mucosa moist. NECK: Supple. No lymphadenopathy. LUNGS: Clear in upper smith, but decreased in the bases. CARDIOVASCULAR: Irregular rate and rhythm. ABDOMEN: Benign. EXTREMITIES: No clubbing, cyanosis or edema. NEUROLOGIC: Slow to mentate and easily redirected. LABORATORY DATA: His white count is 10.4, H&H of 16 and 51 and platelet count is 127. His sodium is 136, potassium 4.8, BUN and creatinine of 46 and 1.2, and blood sugar was noted to be elevated at 200. ASSESSMENT: This is a 71-year-old gentleman admitted to the rehab with a working diagnosis of acute exacerbation of COPD and marked deconditioning. The patient has potential to make improvement. We instituted the following multidisciplinary therapies including to, but not limited to physical, occupational, respiratory, speech, nutritional services, prosthetics and orthotics. Given his complex condition and risk for more complications, rehabilitation services cannot be provided at a lower level of care such as a senior living facility. PLAN: 1. Admit to [facility] rehab for intensive inpatient therapy to include the following disciplines: A. Physical therapy to improve gait, all transfer skills and bed mobility to a modified level. B. Occupational therapy to improve activities of daily living to a modified independent level. C. Case management to assist with discharge planning and placement options. D. Nutrition to assist with nutritional needs. E. Rehabilitation nursing to assist in monitoring the patient's underlying medical conditions and to assist with any type of bowel or bladder management. 2. The patient's current medication and medical care will be continued. 3. The patient will be placed on standard fall precautions. 4. The patient's estimated length of stay is approximately 7-10 days. 5. We will keep his daughter up-to-date with his treatment and will get case management for placement options. 6. We will discuss this patient during care team staff meeting this week. TRANSINT:[id number] Voice Confirmation ID: [id number] DOCUMENT ID: [id number] HISTORY AND PHYSICAL [id number] LOIDA GUZMAN notes whether there has been none or any medical/functional change since admission: - No changes since prescreen. GANGA attests patient continues to be appropriate for IRF: - Continues to be appropriate for IRF JOSE ALBERTO Slaughter MD at 1207 CC: [id number] DICTATION DATE: 12/02/16 1009 SOFTWARE QA SYSTEM SPECIALIST: 12/02/16 1245 ADM IN [facility] [address] [place] [address]
--- NOTE | 2016-12-11 16:00 | NUR ---
MOVED TO ROOM 1112A.DENIES NEEDS.ORIENTED TO SURROUNDINGS
[2016-12-11 20:10] VITALS: BP 115/77
--- NOTE | 2016-12-11 23:05 | NUR ---
PT. IN BED LYING ON HIS LEFT SIDE WITH HOB UP FOR COMFORT WITH EYES CLOSED AND RESP. EVEN. CALL LIGHT WITHIN REACH.
--- NOTE | 2016-12-12 03:00 | NUR ---
PT. IN BED WITH HOB UP FOR COMFORT WITH EYES CLOSED AND RESP. EVEN. O2 ON VIA N/C @ 2L/MIN. CALL LIGHT WITHIN REACH.
--- NOTE | 2016-12-12 07:40 | NUR ---
RESTING QUIETLY IN BED CALL LIGHT IN REACH
--- NOTE | 2016-12-12 10:34 | NUR ---
PATIENT IN REHAB ROOM, WORKING WITH PHYSICAL THERAPIST. SLIGHT NOSE BLEED. RIGHT NARE. NASAL CAVITY FILLED WITH GAUZE. HEAD BACK. NOSE BLEED STOPPED.
[2016-12-12 11:17] VITALS: BP 139/65
--- NOTE | 2016-12-12 11:50 | NUR ---
GLUCOSE LEVEL 221, FOUR UNITS OF SLIDING SCALE INSULIN GIVEN
--- NOTE | 2016-12-12 14:22 | NUR ---
PATIENT IS ALERT/ORIENT X4. STAND BY ASST WITH TRANSFERS. OXYGEN ON AT 2L PER N/C. TELEMTRY ON RUNNING CONTROLED AF. PATIENT IS USING CALL LIGHT FOR NEEDS. SHOWER TODAY WITH SET UP HELP FROM NURSE ASST.
--- NOTE | 2016-12-12 17:00 | NUR ---
GLUCOSE LEVEL 192. TWO UNITS OF SLIDING SCALE INSULIN GIVEN
[2016-12-12 19:08] VITALS: BP 110/71
--- NOTE | 2016-12-12 19:15 | NUR ---
PT RECEIVED IN BED WITH EYES OPEN SITTING UP IN BED WATCHING TV. NO COMPLAINTS OF PAIN OR OTHER NEEDS AT THIS TIME. CALL LIGHT IN REACH. WILL CONTINUE TO OBSERVE.
--- NOTE | 2016-12-13 01:08 | NUR ---
PT IN BED WITH EYES CLOSED AND CHEST RISING. NO SIGN/SYMPTOMS OF DISTRESS NOTED AT THIS TIME. AT 2215 TECH NOTIFIED THIS NURSE THAT TELEMETERY REPORTED PT WAS IN A-FIB AND NEEDED ASSESSMENT. UPON ENTRY PT WAS IN BED WITH HOB 45 DEGREES AND NASAL CANNULA OFF. HOB RAISED TO 70 DEGREES AND NASAL CANNULA PLACED AT 2LPM. PT WITH NO SIGN/SYMPTOMS OF DISTRESS. APICAL PULSE 87 IRREGULAR. TELEMETRY CALLED AND PT 88 CONTROLLED A-FIB. PT CONTINUES TO REST AT THIS TIME NASAL CANNULA IN PLACE. CALL LIGHT IN REACH. WILL CONTINUE TO OBSERVE.
--- NOTE | 2016-12-13 03:27 | NUR ---
PT IN BED WITH EYES CLOSED AND CHEST RISING. RESPIRATIONS EVEN AND UNLABORED. NO SIGN/SYMPTOMS OF DISTRES NOTED. CALL LIGHT IN REACH.
--- NOTE | 2016-12-13 09:00 | NUR ---
PT AM MEDS ADMINISTERED. PT DENIES NEEDS AT THIS TIME.
--- NOTE | 2016-12-13 11:45 | NUR ---
PT GIVEN 2U OF INSULIN FOR 157. WCTM.
[2016-12-13 12:19] VITALS: BP 138/90
--- NOTE | 2016-12-13 16:55 | NUR ---
PT GIVEN 2U OF INSULIN FOR FSBS OF 181. WCTM.
--- NOTE | 2016-12-13 18:14 | NUR ---
PT RESTING IN BED, DENIES NEEDS.
--- NOTE | 2016-12-13 18:30 | NUR ---
RESTING QUIETLY IN BED CALL LIGHT IN REACH
[2016-12-13 19:00] VITALS: BP 138/81
--- NOTE | 2016-12-13 19:00 | NUR ---
IN BED, AWAKE. DENIES NEEDS.
--- NOTE | 2016-12-13 20:15 | NUR ---
CONTINUES IN BED, AWAKE. DENIES NEEDS.
--- NOTE | 2016-12-13 21:45 | NUR ---
ASSESSMENT AND HS MEDS COMPLETE. FSBS 132. GAVE PATIENT SCHEDULED HS SNACK. DENIES NEEDS.
--- NOTE | 2016-12-14 | NUR ---
PATIENT WAS ASSISTED TO AMBULATE TO BR, AND THEN BACK AFTER TOILETING. DENIES NEEDS.
--- NOTE | 2016-12-14 02:00 | NUR ---
RESTING IN BED ON LEFT SIDE. APPEARS COMFORTABLE.
--- NOTE | 2016-12-14 04:40 | NUR ---
REMAINS IN BED, EYES CLOSED. RESPIRING QUIETLY.
--- NOTE | 2016-12-14 06:00 | NUR ---
FSBS 89. GAVE PATIENT 4 OZS APPLE JUICE TO SUPPORT BLOOD SUGAR TILL BREAKFAST. BP 137/77. GAVE PATIENT HSI SCHEDULED LASIX AND PROTONIX PO.
--- NOTE | 2016-12-14 08:09 | NUR ---
PT UP IN WC EATING BREAKFAST, DENIES NEEDS.
--- NOTE | 2016-12-14 08:31 | NUR ---
SITTING UP EATING BREAKFAST DENIES NEEDS CALL LIGHT IN REACH
--- NOTE | 2016-12-14 09:58 | NUR ---
PT RESTING IN BED, EYES CLOSED. BED LOW. CL IN REACH.
[2016-12-14 10:18] VITALS: BP 143/51
--- NOTE | 2016-12-14 12:21 | NUR ---
PT GIVEN 2 UNITS FOR FSBS OF 157 PER ORDERS AT THIS TIME.
--- NOTE | 2016-12-14 14:03 | NUR ---
PT SHOWER GIVEN. PT SITTING UP IN WC WATCHING TV, DENIES NEEDS.
--- NOTE | 2016-12-14 20:08 | NUR ---
PT DENIES PAIN, OR SOB. PT STATES HE IS GETTING READY TO GO HOME. EATING HS SNACK.
[2016-12-15 02:49] VITALS: BP 146/77
--- NOTE | 2016-12-15 04:42 | NUR ---
PT RESTING, NO S/S OF ACUTE DISTRESS.
--- NOTE | 2016-12-15 06:56 | NUR ---
PT DENIES ANY C/O PAIN OR DISCOMFORT. STATES RESTED WELL THROUGH THE NIGHT.
[2016-12-15 07:35] LABS: BASOPHILS 0.1 % (0-2); EOSINOPHILS 0.9 % (0-7); HEMATOCRIT 44.3 % (42.0-54.0); HEMOGLOBIN 14.3 g/dL (13.5-17.5); IMMATURE GRANULOCYTES 0.1 % (0-5); LYMPHOCYTES 17.7 % (15-50); MCH 31.5 pg (26.0-34.0); MCHC 32.3 g/dL (31.0-37.0); MCV 97.6 fL (80.0-100.0); MEAN PLATELET VOLUME 12.7 fL (7.4-10.4); MONOCYTES 8.5 % (2-11); NEUTROPHILS 72.7 % (40-80); PLATELET COUNT 101 10x3/uL (130-400); RBC 4.54 10x6/uL (4.20-6.10); RDW 13.8 % (11.5-14.5); WBC 6.8 10x3/uL (4.8-10.8)
[2016-12-15 07:51] LABS: CALC OSMOLALITY 283 mosm/kg (275-300); CALCIUM 8.7 mg/dL (8.5-10.1); CHLORIDE - SERUM 104 mmol/L (98-107); CREATININE - SERUM 0.9 mg/dL (0.6-1.3); GLUCOSE 102 mg/dL (74-106); POTASSIUM - SERUM 3.4 mmol/L (3.5-5.1); SODIUM 142 mmol/L (136-145); UREA NITROGEN 16 mg/dL (7-18); eGFR NON AFRICAN AMERICAN 89 mL/min (90-120)
[2016-12-15 08:00] VITALS: BP 133/64
--- NOTE | 2016-12-15 08:16 | NUR ---
SITTING UP EATING BREAKFAST DENIES NEEDS CALL LIGHT IN REACH
[2016-12-15] MEDS ORDERED: LASIX20 MG PO (09:24)
--- NOTE | 2016-12-15 09:47 | NUR ---
PATIENT IN REHAB ROOM. WORKING WITH PHYSICAL THERAPIST. DENIES ANY PAIN/DISC AT THIS TIME. DR. Ezekiel HOLM INTO SEE PATIENT. NEW ORDERS RECEIVED FOR DISCHARGE TOMORROW
--- NOTE | 2016-12-15 11:45 | NUR ---
GLUCLOSE LEVEL 144. NO SLIDING SCALE INSULIN GIVEN
--- NOTE | 2016-12-15 17:32 | NUR ---
DISCUSED WITH PATIENT IN REGARDS TO DISCHARGE TO HOME TOMORROW . GLUCOES LEVEL 198. TWO UNITS OF SLIDING SCALE INSULIN GIVEN
[2016-12-15 18:59] VITALS: BP 157/61
--- NOTE | 2016-12-15 19:30 | NUR ---
PT RECEIVED UP IN WHEELCHAIR VISITING WITH FRIEND OF FAMILY. NO COMPLAINTS OF PAIN OR OTHER CONCERNS MADE KNOWN. CALL LIGHT IN REACH. WILL CONTINUE TO OBSERVE.
--- NOTE | 2016-12-16 00:05 | NUR ---
PT IN BED WITH EYES OPEN WATCHING TV. NO CONCERNS NOTED. CALL LIGHT IN REACH.
--- NOTE | 2016-12-16 03:25 | NUR ---
PT IN BED WITH EYES CLOSED AND CHEST RISING. NO CONCERNS NOTED. CALL LIGHT IN REACH.
--- NOTE | 2016-12-16 07:00 | NUR ---
INTRODUCED SELF TO PT, PT STATES NO NEEDS AT THIS TIME, WILL CONTINUE TO MONITOR, CALL LIGHT WITHIN REACH.
--- NOTE | 2016-12-16 09:54 | NUR ---
MORNING MEDICATION GIVEN, PT TOLERATED WELL, WILL CONTINUE TO MONITOR, CALL LIGHT WITHIN REACH.
[2016-12-16 10:32] VITALS: BP 131/75
--- NOTE | 2016-12-16 11:45 | NUR ---
PT SITTING UP IN CHAIR, PT STATES NO NEEDS AT THIS TIME, FSBS WAS 183, 2 UNITS INSULIN GIVEN, WILL CONTINUE TO MONITOR, CALL LIGHT WITHIN REACH.
--- NOTE | 2016-12-16 12:13 | NUR ---
PATIENT DISCHARGING HOME WITH FAMILY. [facility] WILL FOLLOW WITH PATIENT.[facility] WILL DELIVER ROLLING WALKER AND NEBULIZER. DR. DHALIWAL 01/16/17 @ 9:30, DR. DUBOIS 12/29/16 @ 9:40, DR. ESCALANTE 03/24/17 @ 2:30. PATIENT CHOICE FORM FOR HOME HEALTH AND [facility] FORM SIGNED, EXPLAINED AND FILED IN CHART.
--- NOTE | 2016-12-16 13:01 | NUR ---
PT HOME VIA WHEELCHAIR, HOME WITH FRIEND, PRESCRIPTIONS CALL IN TO [facility] ON [address]. DISCHARGED INSTRUCTIONS REVIEWED WITH PATIENT, MEDICATIONS DISCUSSED WITH PT. PT STATES UNDERSTAND IMPORTANCE OF UPDRAFT MEDICATIONS SHOULD BE TAKEN SCHEDULED.
== END 2016-12-16 15:58 | disposition home health service (06) | DRG 190 ==
LOC: D.REHAB 20:29
PROVIDERS: ADMIT Emergency Medicine
DX: J44.1 Chronic obstructive pulmonary disease with (acute) exacerbation (principal); I50.21 Acute systolic (congestive) heart failure; J90 Pleural effusion, not elsewhere classified; I42.9 Cardiomyopathy, unspecified; E72.20 Disorder of urea cycle metabolism, unspecified; E11.22 Type 2 diabetes mellitus with diabetic chronic kidney disease; N18.9 Chronic kidney disease, unspecified; I27.2 Other secondary pulmonary hypertension; R00.0 Tachycardia, unspecified; I73.9 Peripheral vascular disease, unspecified; K74.60 Unspecified cirrhosis of liver; E87.5 Hyperkalemia; D75.1 Secondary polycythemia; F10.20 Alcohol dependence, uncomplicated

== ENCOUNTER 2016-12-25 06:25 | Inpatient (IN) | payer MEDICARE ==
[~2016-12-25] VITALS: Ht 182.9 cm; Wt 80.2 kg
--- NOTE | ~2016-12-25 | HEMODYNAMI ---
PATIENT:LOIDA GUZMAN MEDICAL RECORD: [id number] : 47 LOCATION:[address] ADMISSION DATE: 12/25/16 Generatedon:12/26/201613:27 Patient name: LOIDA GUZMAN Patient #: [id number] SSN: : 1945 Date of study: 12/26/2016 Page: Of Hemodynamic Procedure Report Patient Data Patient Demographics Procedure consent was obtained First Name: LOIDA Gender: Male Last Name: MEGAN : 1945 Patient #: [id number] Age: 71 year(s) Race: Unknown Additional ID: [id number] Contact details [address]: [address] [place] [address] rd State: [place] City: [place] Zip code: [address] Admission Admission Data Admission Date: 12/25/2016 Admission Time: 8:52 Arrival Date: 12/25/2016 Arrival Time: 8:52 Admit Source: Other Insurance Payor: Medicare Room #: D.2123 Weight (lbs.): 174.17 Weight (kg.): 79 Lab Results Lab Result Date: 12/26/2016 Lab Result Time: 0:00 Biochemistry Name Units Result Min Max BUN mg/dl 12 --(-*--)-- 7 18 Creatinine mg/dl 1 --(--*-)-- 0.6 1.3 CBC Name Units Result Min Max Hemoglobin g/dl 14.6 --(-*--)-- 13.5 17.5 Procedure Procedure Types Cath Procedure Diagnostic Procedure C [facility] w/Coronaries Miscellaneous Procedures Moderate Sedation up to 30 minutes Procedure Description Procedure Date Procedure Date: 12/26/2016 Procedure Start Time: 13:11 Procedure End Time: 13:23 Procedure Staff Name Function Willem Boone MD Performing Physician Lin Ponce RT Scrub Blanco Rachel RN Nurse Rebecca Dang RT Monitor Indication Angina Procedure Data Cath Procedure Fluoroscopy Diagnostic fluoroscopy Total fluoroscopy Time: 1.1 time: 1.1 min min Diagnostic fluoroscopy Total fluoroscopy dose: 300 dose: 300 mGy mGy Contrast Material Contrast Material Type Amount (ml) Isovue 300 40 Entry Location Entry Primary Successful Side Size Upsize Upsize Entry Closure Succes sful Closure Location (Fr) 1 (Fr) 2 (Fr) Remarks Device Remarks Femoral Right 5 Fr Exoseal artery Estimated blood loss: 5 ml Diagnostic catheters Device Type Used For End Catheter Placement Cordis 5Fr JL 4.0 Left Coronary Catheter (MP) Angiography Cordis 5Fr 3DRC Catheter Right Coronary (MP) Angiography Cordis 5Fr Pigtail LV Angiography Catheter (MP) Procedure Complications No complications Procedure Medications Medication Administration Route Dosage Oxygen NC 2 l/min Lidocaine 2% added to field 20 Heparin Flush Bag added to field 2 bags (1000units/500ml NS) 0.9% NaCl I.V. 100 ml/hr Versed I.V. 1 mg Fentanyl I.V. 50 mcg Atropine I.V. 2 mg Versed I.V. 1 mg Fentanyl I.V. 50 mcg Hemodynamics Rest HGB: 14.6 (g/dl) Heart Rate: 66 (bpm) Pressure Samples Time Site Value (mmHg) Purpose Heart Use Rate(bpm) 13:15 LV 169/21,23 Snapshot 37 Gradients Valve Time Site Site Mean SEP/DFP Peak To Heart Use 1 2 (mmHg) (sec/min) Peak Rate (mmHg) (bpm) Aortic 13:16 LV AO 37 Snapshots Pre Cath Intra NCS Post Cath Vital Signs Time Heart Resp SPO2 etCO2 [id number] NIBP (mmHg) Rhythm Pain Sedat ion Rate (ipm) (%) (mmHg) (mmHg) Status Level (bpm) 13:05:43 59 18 99 0 0 178/85(158) A-Flutter 0 (11) 10(A) , No pain 13:10:13 57 20 99 0 0 160/84(131) A-Flutter 0 (11) 10(A) , No pain 13:14:21 38 16 97 0 0 133/100(131) A-Flutter 0 (11) 9(A) , No pain 13:19:21 29 16 98 0 0 Measuring A-Flutter 0 (11) 9(A) , No pain 13:19:41 32 16 99 0 0 166/83(110) A-Flutter 0 (11) 10(A) , No pain Medications Time Medication Route Dose Verified Delivered Reason Notes Eff ectiveness by by 13:03:47 Oxygen NC 2 Willem Buffie used for l/min PaoloMitzi Rachel manuscripts archivist MD 13:03:57 Lidocaine 2% added 20ml Willem Willem for local to vial [facility] anesthetic field MD GUTIÉRREZ 13:04:04 Heparin Flush added 2 Willem Willem used for Bag to bags [facility] procedure (1000units/500ml field MD GUTIÉRREZ NS) 13:04:13 0.9% NaCl I.V. 100 Willem Buffie Per ml/hr [facility] Rachel RN physician 13:10:51 Versed I.V. 1 mg Willem Buffie for PaoloMitzi Rachel RN sedation 13:10:56 Fentanyl I.V. [address] for mcg [facility] Rachel RN sedation 13:14:30 Versed I.V. 1 mg Willme Buffie for [place] Rachel RN sedation 13:14:34 Fentanyl I.V. 50 Willem Buffie for mcg [place] Virginie RN sedation 13:18:14 Atropine I.V. 2 mg Willem Buffie For [place] Rachel RN bradycardia Procedure Log Time Note 12:33:04 Rebecca Dang RT(R) sent for patient. Start room use. 12:52:37 Informed consent obtained and on chart 12:52:42 Diagnostic Cath Status : Elective 12:52:59 Indication : Angina 12:53:11 Time tracking: Regular hours 12:53:15 Plan of Care:Hemodynamics will remain stable., Cardiac rhythm will remain stable., Comfort level will be maintained., Respiratory function will remain adequate., Patient/ family verbilizes understanding of procedure., Procedure tolerated without complication., Recovers from procedure without complications.. 12:53:21 Patient received from Med II to CCL 1 Alert and oriented. Tansferred to table in Supine position. 12:53:22 Warm blankets applied, and lamar hugger turned on for patient comfort. 12:53:22 Correct patient and procedure confirmed by team. 12:53:23 ECG and BP/O2 sat monitors applied to patient. 12:53:45 Admit Source: Other 12:53:50 Arrival Date: 12/25/2016 8:52:00 AM 12:54:01 Insurance Payor : Medicare 13:03:47 Oxygen 2 l/min NC was administered by Blanco Rachel RN; used for procedure; 13:03:57 Lidocaine 2% 20ml vial added to field was administered by Willem Boone MD; for local anesthetic; 13:04:04 Heparin Flush Bag (1000units/500ml NS) 2 bags added to field was administered by Willem Boone MD; used for procedure; 13:04:13 0.9% NaCl 100 ml/hr I.V. was administered by Blanco Rachel RN; Per physician; 13:04:26 Vital chart was started 13:05:13 Patient Weight : 174.17 kg 13:05:18 Baseline sample Acquired. 13:05:23 Rhythm: atrial flutter 13:05:24 Full Disclosure recording started 13:05:52 IV Extension Set opened to sterile field. 13:07:27 H&P Date Dictated: 12/26/2016 New H&P dictated by physician.. 13:07:28 Pre-procedure instructions explained to patient. 13:07:29 Pre-op teaching completed and patient verbalized understanding. 13:07:32 Family unavailable. 13:07:34 Patient NPO since Midnight. 13:07:42 Is the patient allergic to Iodine/contrast media? No. 13:07:45 Was the patient premedicated? No 13:07:50 Is patient on blood thinner?No 13:07:52 Patient diabetic? Yes. 13:07:54 If diabetic: On Metformin? No 13:08:01 Previous problem with sedation/anesthesia? No ? 13:08:04 Snore? Yes 13:08:06 Sleep apnea? No 13:08:07 Deviated septum? No 13:08:08 Opens mouth fully? Yes 13:08:09 Sticks out tongue? Yes 13:08:11 Airway obstruction? No ? 13:08:14 Dentures? No ? 13:08:17 Pre procedure: right dorsailis pedis pulse 1+ Palpable, but thready & weak; easily obliterated 13:08:20 Patient pain scale 0/10 ?. 13:08:27 IV patent on arrival in left forearm with 0.9% NaCl at [facility]. 13:08:49 Lab Result : Creatinine 1 mg/dl 13:08:49 Lab Result : BUN 12 mg/dl 13:08:49 Lab Result : Hemoglobin 14.6 g/dl 13:08:52 Lab results completed and on chart. 13:08:57 Right groin area was prepped with chlora-prep and draped in sterile fashion 13:08:57 Alarms reviewed by R. N. 13:08:58 Sharps counted by scrub and verified by R.N. 13:09:00 Physician arrived 13:09:00 --------ALL STOP TIME OUT------ 13:09:01 Final Timeout: patient, procedure, and site verified with staff and physician. All members of the team are in agreement. 13:09:03 Right groin site verified by team. 13:09:14 Physical assessment completed. ASA score P 3 - A patient with severe systemic disease as per Willem Boone MD. 13:09:19 Sedation plan: IV Moderate Sedation Versed, Fentanyl 13:09:34 Use device set Femoral Dx 13:09:36 Acist Syringe opened to sterile field. 13:09:36 Bag Decanter opened to sterile field. 13:09:36 Medline Cath Pack opened to sterile field. 13:09:37 Terumo 5Fr Stinnett Sheath opened to sterile field. 13:09:37 [facility] 260cm J .035 wire opened to sterile field. 13:09:41 Acist Hand Control opened to sterile field. 13:09:42 Acist Manifold opened to sterile field. 13:09:42 Diagnostic Infinity 5Fr Multipack catheter opened to sterile field. 13:09:42 Tegaderm 4 x 4 opened to sterile field. 13:09:47 Procedure started. 13:10:51 Versed 1 mg I.V. was administered by Blanco Rachel RN; for sedation; 13:10:56 Fentanyl 50 mcg I.V. was administered by Blanco Rachel RN; for sedation; 13:11:39 Local anesthetic to right femoral artery with Lidocaine 2% by Willem Boone MD.INITIAL ACCESS ONLY 13:11:47 A 5 Fr sheath was inserted into the Right Femoral artery 13:11:52 A Cordis 5Fr JL 4.0 Catheter (MP) was advanced over the wire and used for Left Coronary Angiography. 13:11:55 Zero performed for pressure channel P1 13:12:01 Zero performed for pressure channel P1 13:12:06 Zero performed for pressure channel P1 13:12:28 LCA angiography performed. 13:12:36 Injector settings: Ml/sec: 3, Volume: 6, 13:13:23 Zero performed for pressure channel P1 13:13:36 Zero performed for pressure channel P1 13:13:47 Catheter removed. 13:13:54 A Cordis 5Fr 3DRC Catheter (MP) was advanced over the wire and used for Right Coronary Angiography. 13:14:02 RCA angiography performed. 13:14:07 Injector settings: Ml/sec: 3, Volume: 6, 13:14:30 Versed 1 mg I.V. was administered by Blanco Rachel RN; for sedation; 13:14:34 Fentanyl 50 mcg I.V. was administered by Blanco Rachel RN; for sedation; 13:14:53 Catheter removed. 13:15:00 A Cordis 5Fr Pigtail Catheter (MP) was advanced over the wire and used for LV Angiography. 13:15:58 LV hemodynamics recorded. 13:15:59 LV gram done using VILLARREAL 13:16:02 Injector settings: Ml/sec: 5, Volume: 15, 13:16:11 EF : 20 % 13:16:47 Catheter removed. 13:18:14 Atropine 2 mg I.V. was administered by Blanco Rachel RN; For bradycardia; 13:20:22 Cordis 5Fr Exoseal opened to sterile field. 13:20:33 Sheath removed intact; hemostasis achieved with Exoseal to the Right Femoral artery. 13:20:35 Procedure ended.(Physican Out) 13:21:30 Fluoroscopy time 01.10 minutes. 13:21:36 Fluoroscopy dose: 300 mGy 13:21:36 Flurop Dose total: 300 13:21:43 Contrast amount:Isovue 300 40ml. 13:21:46 Sharps counted by scrub and verified by R.N. 13:21:49 Insertion/operative site no bleeding no hematoma. 13:21:58 Post-op/insertion site Right Femoral artery dressed using a 4 x 4 and Tegaderm. 13:22:03 Post right femoral artery:stable 13:22:04 Post Procedure Pulses reassessed and unchanged 13:22:08 Post procedure rhythm: unchanged. 13:22:11 Estimated blood loss: 5 ml 13:22:15 Post procedure instruction explained to patient.Patient verbalizes understanding. 13:22:16 Patient needs reinforcement of post procedure teaching. 13:22:25 Procedure type changed to Cath procedure, Diagnostic procedure, LHC, LHC w/Coronaries, Miscellaneous Procedures, Moderate Sedation up to 30 minutes 13:22:29 Procedure and supply charges have been captured, reviewed, submitted and are correct. 13:22:34 Procedure Complication : No complications 13:22:36 Vital chart was stopped 13:22:37 See physician's report for complete and final results. 13:23:30 Report given to Pre/Post Procedure Room. 13:23:42 Patient transfered to [facility] with Stretcher. 13:23:45 Procedure ended. 13:23:45 Full Disclosure recording stopped 13:23:49 End room use (Document Last) Device Usage Item Name Manufacture Quantity Catalog Hospital Part Current Minimal Lo t# / Number Charge Number Stock Stock Serial# Code IV Hospira 1 08097-87 [id number] 96032 769005 5 Extension Set Acist Acist 1 58771 749449 978667 655047 20 Syringe [employer] Inc Bag Microtek 1 2002S 749376 33982 644018 5 Decanter [employer] Medline Cardinal 1 [id number] 420045 52029 801583 5 Cath Pack Health Terumo 5Fr Terumo 1 [id number] 070617 418765 332708 [address] [facility] 1 947925 628489 151103 109461 30 260cm J .035 wire Acist Hand Acist 1 97550 100213 605229 196500 5 Control Medical Systems Inc Acist Acist 1 96212 503312 857404 521496 5 Manifold Medical Systems Inc Diagnostic Cardinal 1 AD3521 682907 36494 779932 30 Infinity Health 5Fr Multipack catheter Tegaderm 4 3M 1 1626W 338543 948379 226870 5 x 4 Cordis 5Fr Cardinal 1 984578 5 JL 4.0 Health Catheter (MP) Cordis 5Fr Cardinal 1 460466 5 3DRC Health Catheter (MP) Cordis 5Fr Cardinal 1 918518 5 Pigtail Health Catheter (MP) Cordis 5Fr Cardinal 1 EX500 967952 199283 510499 10 Revert Signature Audit [place] Stage Time Signature Unsigned Intra-Procedure 12/26/2016 Rebecca Dang 1:27:21 PM RT(R) Signatures Monitor : Rebecca Dang RT Signature : Date : Time : [address] [place] [address]
--- NOTE | ~2016-12-25 | OP ---
PATIENT NAME: LOIDA GUZMAN MEDICAL RECORD: [id number] :47 LOCATION:[address]2123 ADMISSION DATE:12/26/16 SURGEON: WILMER MARTIN MD DATE OF OPERATION: 12/31/2016 PREOPERATIVE DIAGNOSIS: Atrial fibrillation with pulses. POSTOPERATIVE DIAGNOSIS: Atrial fibrillation with pulses. PROCEDURE: Creation of left infraclavicular pacemaker pocket introduction into the central vascular system with a single lead, placement of the pacemaker generator in the pocket with closure. COOLING PIPE INSPECTOR: Dr. Willem Boone. SURGEON: Wilmer Martin MD. This was a co-surgeon case. ANESTHESIA: Local with IV sedation. COMPLICATIONS: None. The risks, possible complications and alternatives to procedure were explained to the patient. He elects to proceed. OPERATIVE COURSE: The patient was conveyed to the cardiac catheterization laboratory on 12/31/2016. An IV sedation was induced by the anesthesia staff. The chest were sterilely prepped and draped. A transverse incision was accomplished in the left infraclavicular area. Sharp dissection was carried down to the level of the pectoralis fascia. A subcutaneous pocket was created in a caudad direction. Through this pocket, I accessed the left subclavian vein utilizing an infraclavicular antegrade approach. A guidewire passed easily. This was witnessed under fluoroscopy. A 7-Persian dilator sheath was advanced. The dilator and wire were removed. Through the sheath, a ventricular lead was advanced. Dr. Willem Boone positioned the lead. Appropriate thresholds were obtained. I sutured the leads down to the underlying pectoralis fascia. I connected the lead to the pacemaker generator. I sutured the pacemaker generator down to the underlying pectoralis fascia with 2-0 TiCron. I irrigated the pacemaker pocket with normal saline. The subdermis was approximated with interrupted 3-0 Vicryls. The skin was approximated with a running intracuticular 4-0 Vicryl. A sterile dressing was applied. We then examined the pacemaker leads and they appeared to be well placed. The pacemaker generator appeared to be well placed as well. TRANSINT:[id number] Voice Confirmation ID: [id number] DOCUMENT ID: [id number] OPERATIVE REPORT [id number] LOIDA GUZMAN WILMER MARTIN MD CC: KOFFI RIVERA MD and WILLEM SAENZ MD [id number] DICTATION DATE: 01/05/17 1507 SENIOR MATERIALS PLANNER: 01/05/17 2257 DIS IN 01/01/17 [place] [id number] [place] [id number]
--- NOTE | ~2016-12-25 | HEMODYNAMI ---
PATIENT:LOIDA GUZMAN MEDICAL RECORD: [id number] : 47 LOCATION:[address] ADMISSION DATE: 12/26/16 Generatedon:12/31/201614:20 Patient name: LOIDA GUZMAN Patient #: [id number] SSN: : 1945 Date of study: 12/31/2016 Page: Of Hemodynamic Procedure Report Patient Data Patient Demographics Procedure consent was obtained First Name: LOIDA Gender: Male Last Name: MEGAN : 1945 Patient #: [id number] Age: 71 year(s) Race: Unknown Additional ID: [id number] Contact details Address: [address] [place] [address] rd State: [place] City: [place] Zip code: [address] Past Medical History Allergies: No known allergies Admission Admission Data Admission Date: 12/26/2016 Admission Time: 13:54 Arrival Date: 12/25/2016 Arrival Time: 8:52 Admit Source: Other Insurance Payor: Medicare Room #: D.2123 Weight (lbs.): 174.17 Weight (kg.): 79 Lab Results Lab Result Date: 12/26/2016 Lab Result Time: 0:00 Biochemistry Name Units Result Min Max BUN mg/dl 12 --(-*--)-- 7 18 Creatinine mg/dl 1 --(--*-)-- 0.6 1.3 CBC Name Units Result Min Max Hemoglobin g/dl 14.6 --(-*--)-- 13.5 17.5 Procedure Procedure Types Cath Procedure Diagnostic Procedure PPM/ICD PPM Ventricular Implant Miscellaneous Procedures Moderate Sedation up to 15 minutes Procedure Description Procedure Date Procedure Date: 12/31/2016 Procedure Start Time: 13:44 Procedure End Time: 14:12 Procedure Staff Name Function Willem Boone MD Performing Physician Rebecca Dang RT Scrub Blanco Rachel RN Nurse Cristi Charles MD Assisting physician Lin Ponce RT Monitor Procedure Data Cath Procedure Fluoroscopy Diagnostic fluoroscopy Total fluoroscopy Time: 1.4 time: 1.4 min min Diagnostic fluoroscopy Total fluoroscopy dose: 99 dose: 99 mGy mGy Estimated blood loss: 10 ml Procedure Complications No complications Procedure Medications Medication Administration Route Dosage Oxygen 2 l/min Lidocaine 1% with added to field 20 ml Epi Bupivacaine 0.5% S.Q. 10 ml Ancef (1Gm/50ml NS) I.V.P.B 1 g Ancef Irrigation Topical 1 g (1gm/500ml NS) Fentanyl I.V. 50 mcg Versed I.V. 1 mg Versed I.V. 1 mg Fentanyl I.V. 50 mcg Lidocaine 1% with added to field 20 ml Epi Hemodynamics Rest HGB: 14.6 (g/dl) Heart Rate: 91 (bpm) Snapshots Pre Cath Intra NCS Post Cath Vital Signs Time Heart Resp SPO2 NIBP (mmHg) Rhythm Pain Sedation Rate (ipm) (%) Status Level (bpm) 13:27:47 72 20 98 112/74(91) A-Flutter 0 (11) 10(A) , No pain 13:31:45 100 20 96 113/85(94) A-Flutter 0 (11) 10(A) , No pain 13:36:50 67 16 96 155/69(136) A-Flutter 0 (11) 10(A) , No pain 13:41:14 73 16 94 164/70(144) A-Flutter 0 (11) 10(A) , No pain 13:46:38 83 16 97 153/74(124) A-Flutter 0 (11) 10(A) , No pain 13:57:31 74 23 94 170/69(144) A-Flutter 0 (11) 10(A) , No pain 14:01:57 74 20 94 184/83(139) A-Flutter 0 (11) 10(A) , No pain 14:06:24 75 20 93 167/111(145) A-Flutter 0 (11) 10(A) , No pain 14:10:48 76 20 95 156/75(144) Paced 0 (11) 10(A) , No pain Medications Time Medication Route Dose Verified Delivered Reason Notes Effectiv eness by by 13:26:12 Oxygen NC-prn 2 Willem Bangura used for for l/min [facility] procedure eugene GUTIÉRREZ MD less than 92% 13:26:23 Lidocaine added 20 ml Willem Bangura for local 1% with Epi to [facility] anesthetic field MD GUTIÉRREZ 13:28:21 Bupivacaine S.Q. 10 ml Willem Bangura for local 0.5% [facility] John anesthetic MD GUTIÉRREZ 13:28:34 Ancef I.V.P.B 1 g Willem Goodie used for (1Gm/50ml [facility] NS) 13:28:42 Ancef Topical 1 g Willem Buffie used for Irrigation [facility] excelsior cutter (1gm/500ml NS) 13:38:41 Fentanyl I.V. 50 Willem Goodie for mcg [facility] RN sedation 13:38:53 Versed I.V. 1 mg Willem Goodie for [facility] RN sedation 13:48:13 Versed I.V. 1 mg Willem Goodie for [facility] RN sedation 13:48:16 Fentanyl I.V. 50 Willem Goodie for mcg [facility] RN sedation 13:48:21 Lidocaine added 20 ml Willem Simeon for local 1% with Epi to [facility] RN anesthetic field GUTIÉRREZ Procedure Log Time Note 13:25:38 Admit Source: Other 13:26:11 Lin Ponce RT(R) sent for patient. Start room use. 13:26:12 Oxygen 2 l/min NC-prn for sats less than 92% was administered by Willem Boone MD; used for procedure; 13:26:12 Time tracking: Regular hours 13:26:19 Plan of Care:Hemodynamics will remain stable., Cardiac rhythm will remain stable., Comfort level will be maintained., Respiratory function will remain adequate., Patient/ family verbilizes understanding of procedure., Procedure tolerated without complication., Recovers from procedure without complications.. 13:26:23 Lidocaine 1% with Epi 20 ml added to field was administered by Willem Boone MD; for local anesthetic; 13:26:28 Patient received from Med II to CCL 2 Alert and oriented. Tansferred to table in Supine position. 13:26:32 Warm blankets applied, and lamar hugger turned on for patient comfort. 13:26:33 Correct patient and procedure confirmed by team. 13:26:37 Signed procedure consent form obtained from patient. 13:26:38 ECG and BP/O2 sat monitors applied to patient. 13:26:39 Vital chart was started 13:26:49 Baseline sample Acquired. 13:27:05 Rhythm: atrial flutter 13:27:07 Full Disclosure recording started 13:27:13 H&P Date Dictated: 12/31/2016 Within 30 days and on chart.. 13:27:14 Pre-procedure instructions explained to patient. 13:27:17 Family unavailable. 13:27:19 Patient NPO since Midnight. 13:28:21 Bupivacaine 0.5% 10 ml S.Q. was administered by Willem Boone MD; for local anesthetic; 13:28:34 Ancef (1Gm/50ml NS) 1 g I.V.P.B was administered by Blanco Rachel RN; used for procedure; 13:28:42 Ancef Irrigation (1gm/500ml NS) 1 g Topical was administered by Blanco Rachel RN; used for procedure; 13:34:41 Patient allergic to No known allergies 13:34:44 Is the patient allergic to Iodine/contrast media? Unknown. 13:35:36 Patient diabetic? Yes. 13:35:38 If diabetic: On Metformin? No 13:35:41 Snore? Yes 13:35:44 Sleep apnea? No 13:35:54 Dentures? No ? 13:36:03 Patient pain scale 0/10 ?. 13:36:09 IV patent on arrival in left hand with 0.9% NaCl at [facility]. 13:36:41 Lab results completed and on chart. 13:37:01 Left chest area was prepped with chlora-prep and draped in sterile fashion 13:37:14 Left Chest was prepped with chlora-prep and draped in sterile fashion. 13:37:16 Sharps counted by scrub and verified by R.N. 13:37:19 Physician paged 13:37:22 Physician arrived 13:37:27 --------ALL STOP TIME OUT------ 13:37:28 Final Timeout: patient, procedure, and site verified with staff and physician. All members of the team are in agreement. 13:37:43 Left chest site verified by team. 13:37:46 Physical assessment completed. ASA score P 2 - A patient with mild systemic disease as per Willem Boone MD. 13:37:51 Sedation plan: IV Moderate Sedation Versed, Fentanyl 13:38:05 Use device set Pacemaker Set 13:38:07 Mepilex Dressing opened to sterile field. 13:38:13 3.0 Vicryl Multipack [id number] opened to sterile field. 13:38:26 3.0 Vicryl Single Pack [id number] opened to sterile field. 13:38:29 2.0 Ticron Multipack opened to sterile field. 13:38:41 Fentanyl 50 mcg I.V. was administered by Blanco Rachel RN; for sedation; 13:38:53 Versed 1 mg I.V. was administered by Blanco Rachel RN; for sedation; 13:39:02 Immobilizer Sling Medium opened to sterile field. 13:39:15 Procedure type changed to Cath procedure, Diagnostic procedure, PPM/ICD, PPM Ventricular Implant, Miscellaneous Procedures, Moderate Sedation up to 15 minutes 13:44:31 Procedure started. 13:46:08 Medtronic training representative Dat Golden present for procedure. 13:47:05 Pre sharps counted by scrub and verified by RN: Sutures: 14 Sponges: 5 Stick needles: 2 Skin needles: 1 Blade: 1 Cautery: 1 13:47:12 Grounding pad site Left thigh. 13:47:14 Grounding pad site free from injury. 13:47:23 Lidocaine 1% w/epi to left subclavicular area by Cristi Charles MD. 13:47:34 Incision made to left subclavicular area. 13:47:36 Generator pocket made/opened. 13:48:13 Versed 1 mg I.V. was administered by Blanco Rachel RN; for sedation; 13:48:16 Fentanyl 50 mcg I.V. was administered by Blanco Rachel RN; for sedation; 13:48:21 Lidocaine 1% with Epi 20 ml added to field was administered by Blanco Rachel RN; for local anesthetic; 13:49:35 Medtronic Adapta PPM Single Generator opened to sterile field. 13:49:36 Medtronic 4074-52 PPM Lead opened to sterile field. 13:52:04 Left subclavian vein accessed with 7Fr Safe Sheath. 13:52:18 Ventricular lead inserted and advanced. 13:52:38 Peel-a-way sheath was split and removed. 13:53:01 Ventricular lead tested. 13:55:30 PPM Single was attached to lead(s) and inserted into pocket. 13:55:39 PPM Single was inserted subcutaneously to left chest. 13:55:42 Device pocket was irrigated with Ancef. 13:55:48 Ventricular lead attachment was completed with 2-0 silk. 13:58:25 Parameters-- Generator: Mode: VVIR. Lower Rate: 60bpm. Upper Rate: 130bpm. 14:00:48 Parameters--Ventricular P/R Wave: 8.4mV. Current: .3mA; Threshold: .3V; Impedence: 770OHMS. 14:01:13 Generator was sutured in place with 2-0 silk. 14:01:29 Lt Chest incision was dressed with Mepilex dressing. 14:10:57 Procedure ended.(Physican Out) 14:11:05 Fluoroscopy time 01.40 minutes. 14:11:11 Fluoroscopy dose: 99 mGy 14:11:11 Flurop Dose total: 99 14:11:14 Sharps counted by scrub and verified by R.N. 14:11:20 Insertion/operative site no bleeding no hematoma. 14:11:29 Post-op/insertion site Left Chest area dressed using a Mepilex dressing. 14:11:36 Post Procedure Pulses reassessed and unchanged 14:11:44 Post-procedure physical assessment completed. ASA score P 2 - A patient with mild systemic disease as per Willem Boone MD. 14:11:49 Post procedure rhythm: paced 14:11:52 Estimated blood loss: 10 ml 14:11:54 Post procedure instruction explained to patient.Patient verbalizes understanding. 14:11:59 Procedure and supply charges have been captured, reviewed, submitted and are correct. 14:12:22 Procedure Complication : No complications 14:12:28 Vital chart was stopped 14:12:29 See physician's report for complete and final results. 14:12:33 Report given to Pre/Post Procedure Room. 14:12:37 Patient transfered to Pre/Post Procedure Room with Stretcher. 14:12:40 Procedure ended. 14:12:40 Full Disclosure recording stopped 14:12:46 End room use (Document Last) Device Usage Item Name Manufacture Quantity Catalog Hospital Part Current Minimal Lot# / Number Charge Number Stock Stock Serial# Code Mepilex Cardinal 1 [id number] [id number] 578701 363834 5 Dressing Health 3.0 Vicryl Ethicon 1 [id number] 957958 590130 167192 5 Multipack [id number] 3.0 Vicryl Ethicon 1 [id number] 630621 000060 872822 5 Single Pack [id number] 2.0 Ticron Ethicon 4 [id number] 048166 96364 958580 5 Multipack Immobilizer Cardinal 1 [id number] 259986 470500 058950 5 Sling Health Medium Medtronic Medtronic 1 ADSR01 [id number] 442484 5 ADSR01 Adapta PPM ADSR01 Single [id number] Generator exp. ADSR01 07/02/2017 Medtronic Medtronic 1 4074-52 310285 404623 5 4074-52 PPM [id number] Lead exp. 07/08/2018 Signature Audit [place] Stage Time Signature Unsigned Intra-Procedure 12/31/2016 Lin Ponce 2:20:46 PM RT(R) Signatures Monitor : Lin Ponce Signature : RT Date : Time : [place] [id number] [place] [address]
[~2016-12-25 06:25] MED LIST changes: +LASIX20 MG PO
[2016-12-25 06:55] LABS: BASOPHILS 0.1 % (0-2); HEMATOCRIT 44.1 % (42.0-54.0); HEMOGLOBIN 14.4 g/dL (13.5-17.5); IMMATURE GRANULOCYTES 0.1 % (0-5); LYMPHOCYTES 10.1 % (15-50); MCH 31.2 pg (26.0-34.0); MCHC 32.7 g/dL (31.0-37.0); MCV 95.7 fL (80.0-100.0); MEAN PLATELET VOLUME 11.8 fL (7.4-10.4); MONOCYTES 8.2 % (2-11); NEUTROPHILS 80.5 % (40-80); RBC 4.61 10x6/uL (4.20-6.10); RDW 13.3 % (11.5-14.5); WBC 7.3 10x3/uL (4.8-10.8)
[2016-12-25 07:08] LABS: PLATELET COUNT 179 10x3/uL (130-400)
[2016-12-25 07:23] LABS: ALBUMIN 3.2 g/dL (3.4-5.0); ALKALINE PHOSPHATASE 77 U/L (46-116); ALT (SGPT) 37 U/L (10-68); BILIRUBIN - TOTAL 0.68 mg/dL (0.2-1.3); CALCIUM 8.6 mg/dL (8.5-10.1); CARBON DIOXIDE 30.7 mmol/L (21.0-32.0); CHLORIDE - SERUM 102 mmol/L (98-107); CREATINE KINASE 44 UL (21-232); CREATININE - SERUM 0.9 mg/dL (0.6-1.3); MAGNESIUM - SERUM 1.6 mg/dL (1.8-2.4); PROTEIN - SERUM 6.2 g/dL (6.4-8.2); SODIUM 143 mmol/L (136-145); TROPONIN-I 0.059 ng/mL (0.000-0.060); UREA NITROGEN 13 mg/dL (7-18); eGFR NON AFRICAN AMERICAN 89 mL/min (90-120)
[2016-12-25 08:18] LABS: CALC OSMOLALITY 287 mosm/kg (275-300); GLUCOSE 154 mg/dL (74-106)
[2016-12-25 08:19] LABS: POTASSIUM - SERUM 2.6 mmol/L (3.5-5.1)
[2016-12-25] MEDS ORDERED: FUROSEMIDE20 MG PO (10:03)
[2016-12-25] MEDS ORDERED: PACERONE200 MG PO (10:03)
[2016-12-25 10:05] VITALS: BP 139/51; BMI 23.9
--- NOTE | 2016-12-25 10:21 | NUR ---
PT ARRIVED TO ROOM VIA WHEELCHAIR FROM ER. PT IS ALERT AND ORIENTED PT DAUGHTER AND SON IN LAW AT BEDSIDE. ADMISSION COMPLETE. PT HAS 2 PIVS ON EACH HAND BOTH SL. BILATERAL FEET ARE DRY AND CRACKED. BOTTOM IS RED BUT BLANCHABLE. TELE PLACED AND PT IS RUNNING SINUS HAWK WITH PVCS AT 42 BPM. DEFIB PADS ARE NOTED TO PT CHEST. WILL CONT TO MONITOR
[2016-12-25 13:05] LABS: MAGNESIUM - SERUM 1.6 mg/dL (1.8-2.4); PHOSPHOROUS 3.9 mg/dL (2.5-4.9)
[2016-12-25 13:06] LABS: POTASSIUM - SERUM 3.6 mmol/L (3.5-5.1)
--- NOTE | 2016-12-25 14:22 | NUR ---
PT SITTING UP IN BED WATCHING TV. PT FEET ARE DRY AND CRACKING. WITH MULTIPLE SCABS. APPLIED MOISTURIZER AND COVERED WITH SOCKS.
[2016-12-25 15:22] VITALS: BP 150/63
--- NOTE | 2016-12-25 17:55 | NUR ---
PT SITTING UP IN BED DENIES ANY NEEDS WILL CONT TO MONITOR
[2016-12-25 19:00] VITALS: BP 132/63
--- NOTE | 2016-12-25 19:00 | NUR ---
RECEIVED REPORT AND ASSUMED PT CARE FROM DAY SHIFT NURSE @ THIS TIME.
[2016-12-26 04:00] VITALS: BP 129/46
[2016-12-26 06:32] LABS: BASOPHILS 0.2 % (0-2); EOSINOPHILS 1.4 % (0-7); HEMATOCRIT 44.1 % (42.0-54.0); HEMOGLOBIN 14.6 g/dL (13.5-17.5); IMMATURE GRANULOCYTES 0.2 % (0-5); MCH 31.5 pg (26.0-34.0); MCHC 33.1 g/dL (31.0-37.0); MCV 95.2 fL (80.0-100.0); MEAN PLATELET VOLUME 11.9 fL (7.4-10.4); MONOCYTES 10.3 % (2-11); NEUTROPHILS 62.9 % (40-80); PLATELET COUNT 200 10x3/uL (130-400); RBC 4.63 10x6/uL (4.20-6.10); RDW 13.7 % (11.5-14.5); WBC 5.6 10x3/uL (4.8-10.8)
[2016-12-26 07:48] VITALS: BP 148/55
[2016-12-26 08:03] LABS: ALBUMIN 2.9 g/dL (3.4-5.0); ALKALINE PHOSPHATASE 64 U/L (46-116); ALT (SGPT) 34 U/L (10-68); CALCIUM 8.4 mg/dL (8.5-10.1); CARBON DIOXIDE 28.7 mmol/L (21.0-32.0); CHLORIDE - SERUM 104 mmol/L (98-107); MAGNESIUM - SERUM 1.7 mg/dL (1.8-2.4); PHOSPHOROUS 3.3 mg/dL (2.5-4.9); PROTEIN - SERUM 6.3 g/dL (6.4-8.2); SODIUM 143 mmol/L (136-145); UREA NITROGEN 12 mg/dL (7-18); eGFR NON AFRICAN AMERICAN 78 mL/min (90-120)
[2016-12-26 08:06] LABS: CALC OSMOLALITY 284 mosm/kg (275-300); GLUCOSE 104 mg/dL (74-106)
[2016-12-26 08:07] LABS: POTASSIUM - SERUM 2.7 mmol/L (3.5-5.1)
--- NOTE | 2016-12-26 09:58 | NUR ---
CONSENTS SIGNED FOR [facility]. TELEMETRY A.FIB. HR 40. K+ RIDER INFUSING FOR K+2.7. WILL CONT. PLAN OF CARE.
[2016-12-26 11:48] VITALS: BP 148/75
[2016-12-26 12:35] VITALS: Ht 182.9 cm; Wt 80.2 kg
--- NOTE | 2016-12-26 13:00 | NUR ---
PRE-OPS GIVEN. TO FRENCH LECTURER BY BED.
--- NOTE | 2016-12-26 13:55 | NUR ---
BACK FROM DATA INPUT CLERK. VS WNL. RIGHT GROIN STABLE WITHOUT BLEEDING OR HEMATOMA NOTED.
--- NOTE | 2016-12-26 15:48 | NUR ---
BED REST UP GROIN STABLE.
[2016-12-26 19:00] VITALS: BP 177/112
[2016-12-27] VITALS: BP 166/92
[2016-12-27 04:00] VITALS: BP 160/55
[2016-12-27 05:43] LABS: BASOPHILS 0.2 % (0-2); EOSINOPHILS 1.2 % (0-7); HEMATOCRIT 44.9 % (42.0-54.0); HEMOGLOBIN 14.6 g/dL (13.5-17.5); IMMATURE GRANULOCYTES 0.3 % (0-5); LYMPHOCYTES 20.5 % (15-50); MCH 31.3 pg (26.0-34.0); MCHC 32.5 g/dL (31.0-37.0); MCV 96.1 fL (80.0-100.0); MEAN PLATELET VOLUME 11.6 fL (7.4-10.4); MONOCYTES 10.1 % (2-11); NEUTROPHILS 67.7 % (40-80); PLATELET COUNT 193 10x3/uL (130-400); RBC 4.67 10x6/uL (4.20-6.10); RDW 13.6 % (11.5-14.5); WBC 5.8 10x3/uL (4.8-10.8)
[2016-12-27 06:05] LABS: ALBUMIN 3.2 g/dL (3.4-5.0); ALKALINE PHOSPHATASE 72 U/L (46-116); ALT (SGPT) 33 U/L (10-68); BILIRUBIN - TOTAL 0.73 mg/dL (0.2-1.3); CALC OSMOLALITY 281 mosm/kg (275-300); CALCIUM 8.8 mg/dL (8.5-10.1); CARBON DIOXIDE 31.1 mmol/L (21.0-32.0); CHLORIDE - SERUM 104 mmol/L (98-107); CREATININE - SERUM 0.9 mg/dL (0.6-1.3); GLUCOSE 97 mg/dL (74-106); MAGNESIUM - SERUM 1.8 mg/dL (1.8-2.4); PROTEIN - SERUM 6.7 g/dL (6.4-8.2); SODIUM 142 mmol/L (136-145); UREA NITROGEN 9 mg/dL (7-18); eGFR NON AFRICAN AMERICAN 89 mL/min (90-120)
[2016-12-27 06:06] LABS: POTASSIUM - SERUM 3.3 mmol/L (3.5-5.1)
[2016-12-27 08:37] VITALS: BP 168/89
--- NOTE | 2016-12-27 10:00 | OP ---
PATIENT NAME: LOIDA GUZMAN MEDICAL RECORD: [id number] :47 LOCATION:D. D.2123 ADMISSION DATE:12/26/16 SURGEON: KRISTY SAENZ MD DATE OF OPERATION: 12/26/2016 PROCEDURES: Left heart catheterization, selective coronary angiography, right femoral artery approach. CATHETERS: A 5-Tajik sheath, 5/4 left and right Gato, 5/4 pig. The procedure was well tolerated and the patient was returned to [place], sheath removed. ExoSeal device placed. FINDINGS: Left ventriculography in 30-degree VILLARREAL view: Global hypokinesis, reduced LV function 20%-25%. CORONARY ANATOMY: Left main: Left main is free of disease. LAD: Free of disease in the diagonal system. CIRCUMFLEX: Free of disease in the marginal system. RIGHT CORONARY ARTERY: Dominant artery, gives rise to PDA, free of disease. IMPRESSION: Nonischemic cardiomyopathy. I suspect arrhythmias secondary to hypokalemia and cardiomyopathy. Hopefully, heart rate will increase off amiodarone and carvedilol with correction of potassium. Further recommendation as above. TRANSINT:[id number] Voice Confirmation ID: [id number] DOCUMENT ID: [id number] KRISTY SAENZ MD at 1000 CC: [id number] DICTATION DATE: 12/26/16 1327 EMBLEM FUSER TENDER: 12/26/16 2317 ADM IN [facility] [address] [place] [address]
--- NOTE | 2016-12-27 11:00 | NUR ---
TELEMETRY FIB/FLUTTER. HR 77. CALL LIGHT IN REACH. WILL CONT. PLAN OF CARE.
[2016-12-27 13:03] VITALS: BP 161/65
[2016-12-27 16:03] VITALS: BP 174/63
[2016-12-27 20:00] VITALS: BP 163/62
--- NOTE | 2016-12-27 20:00 | NUR ---
PT RESTING IN BED. NO DISTRESS. NONLABORED RESPIRATIONS ON ROOM AIR. FIB/FLUTTER PER TELEMETRY. SEE SHIFT ASSESSMENT. CPOC.
--- NOTE | 2016-12-27 23:00 | NUR ---
HS MED GIVEN. FSBS 95. HS SNACK PROVIDED.
[2016-12-28] VITALS: BP 183/104
[2016-12-28 04:00] VITALS: BP 159/67
[2016-12-28 06:55] LABS: BASOPHILS 0.2 % (0-2); HEMATOCRIT 43.9 % (42.0-54.0); HEMOGLOBIN 14.8 g/dL (13.5-17.5); IMMATURE GRANULOCYTES 0.5 % (0-5); LYMPHOCYTES 19.9 % (15-50); MCH 32.2 pg (26.0-34.0); MCHC 33.7 g/dL (31.0-37.0); MCV 95.4 fL (80.0-100.0); MEAN PLATELET VOLUME 11.9 fL (7.4-10.4); MONOCYTES 10.5 % (2-11); NEUTROPHILS 67.9 % (40-80); PLATELET COUNT 191 10x3/uL (130-400); RDW 13.6 % (11.5-14.5); WBC 6.3 10x3/uL (4.8-10.8)
[2016-12-28 07:23] LABS: ALBUMIN 3.2 g/dL (3.4-5.0); ALKALINE PHOSPHATASE 74 U/L (46-116); ALT (SGPT) 28 U/L (10-68); BILIRUBIN - TOTAL 0.74 mg/dL (0.2-1.3); CALC OSMOLALITY 286 mosm/kg (275-300); CALCIUM 8.9 mg/dL (8.5-10.1); CARBON DIOXIDE 29.9 mmol/L (21.0-32.0); CHLORIDE - SERUM 106 mmol/L (98-107); CREATININE - SERUM 0.9 mg/dL (0.6-1.3); GLUCOSE 94 mg/dL (74-106); MAGNESIUM - SERUM 1.8 mg/dL (1.8-2.4); PHOSPHOROUS 3.5 mg/dL (2.5-4.9); POTASSIUM - SERUM 3.4 mmol/L (3.5-5.1); PROTEIN - SERUM 6.9 g/dL (6.4-8.2); SODIUM 145 mmol/L (136-145); UREA NITROGEN 8 mg/dL (7-18); eGFR NON AFRICAN AMERICAN 89 mL/min (90-120)
[2016-12-28 08:00] VITALS: BP 141/90
[2016-12-28 12:00] VITALS: BP 160/83
[2016-12-28 16:00] VITALS: BP 133/66
[2016-12-28 19:00] VITALS: BP 178/57
--- NOTE | 2016-12-28 19:59 | NUR ---
PT RESTING IN BED. ALERT/ORIENTED. RESPS EVEN/NONLABORED WITH NO DISTRESS. PT ON TELEMETRY IN CAF/FLUTTER. SALINE LOCKS PATENT TO RIGHT AND LEFT HANDS. NO NEEDS AT THIS TIME. CPOC.
--- NOTE | 2016-12-28 21:44 | NUR ---
BEDTIME MEDS GIVEN. FSBS 111. BEDTIME SNACK GIVEN. PT WATCHING TV. CALL LIGHT IN REACH.
[2016-12-29] VITALS: BP 165/69
[2016-12-29 04:00] VITALS: BP 154/67
[2016-12-29 05:34] LABS: BASOPHILS 0.1 % (0-2); EOSINOPHILS 0.7 % (0-7); HEMATOCRIT 45.5 % (42.0-54.0); HEMOGLOBIN 15.1 g/dL (13.5-17.5); IMMATURE GRANULOCYTES 0.4 % (0-5); LYMPHOCYTES 18.7 % (15-50); MCH 31.4 pg (26.0-34.0); MCHC 33.2 g/dL (31.0-37.0); MCV 94.6 fL (80.0-100.0); MONOCYTES 14.1 % (2-11); PLATELET COUNT 204 10x3/uL (130-400); RBC 4.81 10x6/uL (4.20-6.10); RDW 13.5 % (11.5-14.5)
[2016-12-29 06:16] LABS: ALKALINE PHOSPHATASE 79 U/L (46-116); ALT (SGPT) 24 U/L (10-68); BILIRUBIN - TOTAL 0.74 mg/dL (0.2-1.3); CALC OSMOLALITY 279 mosm/kg (275-300); CALCIUM 8.9 mg/dL (8.5-10.1); CARBON DIOXIDE 26.9 mmol/L (21.0-32.0); CHLORIDE - SERUM 104 mmol/L (98-107); CREATININE - SERUM 0.8 mg/dL (0.6-1.3); GLUCOSE 125 mg/dL (74-106); MAGNESIUM - SERUM 1.8 mg/dL (1.8-2.4); PHOSPHOROUS 3.7 mg/dL (2.5-4.9); POTASSIUM - SERUM 3.8 mmol/L (3.5-5.1); PROTEIN - SERUM 6.6 g/dL (6.4-8.2); SODIUM 140 mmol/L (136-145); UREA NITROGEN 13 mg/dL (7-18); eGFR NON AFRICAN AMERICAN > 90 mL/min (90-120)
--- NOTE | 2016-12-29 07:43 | NUR ---
SLEEPING AT PRESENT. MONITOR SHOWS FLUTTER @ 63. WILL CONTINUE TO MONITOR.
[2016-12-29 08:22] VITALS: BP 149/57
[2016-12-29 11:43] VITALS: BP 137/68
--- NOTE | 2016-12-29 16:04 | NUR ---
Patient Name: LOIDA GUZMAN Admission Status: ER Accout number: [id number] Admission Date: 12-26-2016 : 1945 Admission Diagnosis: Attending: MARISOL Current LOS: 3 Anticipated DC Date: Planned Disposition: Primary Insurance: MEDICARE PART A ONLY Discharge Planning Comments: CM MET WITH PATIENT TO DISCUSS DISCHARGE PLANNING/NEEDS. PATIENT STATED HIS PLANS WERE TO RETURN HOME. HE STATED HE FEELS HIS HOME IS SAFE, BUT MENTIONED HIS DAUGHTER DOES NOT FEEL THE SAME. THE PATIENT IS IN HIS RIGHT MIND, AND SAID HE CAN TAKE CARE OF HIS SELF. PATIENT SAID HE WAS JUST RECENTLY SENT HOME FROM OUR REHAB AND FELT GOOD UNTIL HIS HEART STARTED ACTING UP. PATIENT DENIES NEEDS WHEN HE GOES HOME, EXCEPT FOR THE FACT HE DOES NOT HAVE A GLUCOMETER OR KNOW ANYTHING ABOUT DIABETES, AND SAID HE WAS TOLD THAT HE IS A DIABETIC. EXPLAINED I WOULD GET WITH THE GRID OPERATOR TO TALK WITH HIM ABOUT DIABETIC DIETS AND SEE WHAT COULD BE DONE TO ASSIST WITH A GLUCOMETER. PATIENT STATED HIS FRIEND, KIM, WOULD BE HIS TRANSPORTATION HOME. CM WILL CONTINUE TO FOLLOW AND ASSIST NEEDED. (PER DOCUMENTATION BY THE PHYSICIAN, THE PATIENT HAS STOPPED TAKING SOME OF HIS MEDICATIONS WITHOUT REASON. THE PATIENT DENIES THIS AT THE PRESENT) Bench Worker Binding: Na Flowers Is the patient Alert and Oriented? Yes * How many steps to enter\exit or inside your home? 2 * PCP DOES NOT HAVE ONE. PRINT OFF FOR HEALTHY CONNECTIONS GIVEN TO PATIENT * Pharmacy [facility] * Preadmission Environment Home Alone * ADLs Independent * Equipment Rolling Walker Wheelchair * List name and contact numbers for known caregivers / representatives who currently or will assist patient after discharge: TULIO GUZMAN, DAUGHTER, OR FRIEND, KIM, * Community resources currently utilized None * Additional services required to return to the preadmission environment? No * Can the patient safely return to the preadmission environment? Yes * Has this patient been hospitalized within the prior 30 days at any hospital? Yes
--- NOTE | 2016-12-29 16:53 | NUR ---
RESTING QUIETLY IN BED. MONITOR SHOWS UCAF AT RATE OF 124. PT IN WC AND WANTED TO GO OUTSIDE. TOLD PT NO DUE TO HEART RHYTHM. FAMILY WILL JUST WHEEL HIM AROUND THE UNIT.
--- NOTE | 2016-12-29 20:21 | NUR ---
PT RESTING IN BED. ALERT/ORIENTED. STATE SHE WISHES HE COULD GO HOME. PATENT SALINE LOCKS TO RIGHT AND LEFT HANDS. NONLABORED RESPIRATIONS ON ROOM AIR. SEE ASSESSMENT. CPOC. CALL LIGHT IN REACH.
--- NOTE | 2016-12-29 22:22 | NUR ---
PT RESTING AND WATCHING TV. BEDTIME MEDS GIVEN. SALINE FLUSHED LEFT HAND PIV. REMOVED IV TO RIGHT HAND,PAIN WITH FLUSHING. CPOC. CALL LIGHT IN REACH.
--- NOTE | 2016-12-29 22:37 | NUR ---
PT UP AND ABOUT IN HIS ROOM. GAIT STEADY AND UNASSISTED. BEDTIME MEDS GIVEN. FSBS 270, GIVEN 30 UNITS OF HUMULIN N TO RIGHT ARM. HS SNACK GIVEN.
[2016-12-30] VITALS: BP 141/91
[2016-12-30 05:24] LABS: BASOPHILS 0.3 % (0-2); EOSINOPHILS 0.7 % (0-7); HEMATOCRIT 46.6 % (42.0-54.0); HEMOGLOBIN 15.8 g/dL (13.5-17.5); IMMATURE GRANULOCYTES 0.3 % (0-5); LYMPHOCYTES 22.7 % (15-50); MCH 31.9 pg (26.0-34.0); MCHC 33.9 g/dL (31.0-37.0); MCV 94.1 fL (80.0-100.0); MEAN PLATELET VOLUME 11.9 fL (7.4-10.4); MONOCYTES 12.4 % (2-11); NEUTROPHILS 63.6 % (40-80); PLATELET COUNT 204 10x3/uL (130-400); RBC 4.95 10x6/uL (4.20-6.10); RDW 13.4 % (11.5-14.5)
[2016-12-30 06:14] LABS: ALBUMIN 2.8 g/dL (3.4-5.0); ALKALINE PHOSPHATASE 73 U/L (46-116); ALT (SGPT) 26 U/L (10-68); CALC OSMOLALITY 281 mosm/kg (275-300); CALCIUM 8.6 mg/dL (8.5-10.1); CARBON DIOXIDE 29.1 mmol/L (21.0-32.0); CHLORIDE - SERUM 103 mmol/L (98-107); GLUCOSE 112 mg/dL (74-106); MAGNESIUM - SERUM 1.7 mg/dL (1.8-2.4); PHOSPHOROUS 4.2 mg/dL (2.5-4.9); POTASSIUM - SERUM 3.7 mmol/L (3.5-5.1); PROTEIN - SERUM 6.4 g/dL (6.4-8.2); SODIUM 141 mmol/L (136-145); UREA NITROGEN 13 mg/dL (7-18); eGFR NON AFRICAN AMERICAN 78 mL/min (90-120)
--- NOTE | 2016-12-30 06:15 | NUR ---
PT RESING WITH NO DISTRESS. AM MED GIVEN. BLOOD COLLECTED BY LAB. CPOC. CALL LIGHT IN REACH.
--- NOTE | 2016-12-30 07:23 | NUR ---
AM ROUNDS- PT IN BED, WITH EYES CLOSED, NAD NTED, LT HAND IV SL. CALL LIGHT IN REACH, WILL CONTINUE TO MONITOR.
[2016-12-30 09:06] VITALS: BP 148/57
--- NOTE | 2016-12-30 09:10 | NUR ---
ADMINISTERED MORNING MEDICATIONS, PT UP TO SIDE OF BED, EATING BREAKFAST. PT DENIES ANY NEEDS AT THIS TIME. CALL LIGHT IN REACH, NAD NOTED, WILL CONTINUE TO MONITOR.
[2016-12-30 11:57] VITALS: BP 107/74
[2016-12-30 16:03] VITALS: BP 116/69
--- NOTE | 2016-12-30 16:28 | NUR ---
BLOOD SUGAR OF 151, 2UNTS GIVEN PER S/S. PT UP TO SIDE OF BED, DENIES ANY NEEDS AT THIS TIME. CALL LIGHT IN REACH, NAD NOTED, WILL CONTINUE TO MONITOR.
--- NOTE | 2016-12-30 16:45 | NUR ---
PT WENT OUTISDE VIA WHEELCHAIR, WITH FAMILY MEMBER, HERMILO NOTED.
--- NOTE | 2016-12-30 17:03 | NUR ---
PT RETURNED BACK TO ROOM AT THIS TIME, NAD NOTED, WILL CONTINUE TO MONITOR.
[2016-12-30 19:00] VITALS: BP 176/65
--- NOTE | 2016-12-30 20:50 | NUR ---
HS MEDS GIVEN, BS 137, NO COVERAGE GIVEN PER S/S. DENIES PAIN OR NEEDS, BED LOW, CL IN REACH.
--- NOTE | 2016-12-30 23:17 | NUR ---
RESTING WITH EYES CLOSED, RESPERATIONS EVEN, NO S/S DISTRESS NOTED.
[2016-12-31] VITALS: BP 144/103
[2016-12-31 04:00] VITALS: BP 143/63
[2016-12-31 07:00] VITALS: BP 133/75
--- NOTE | 2016-12-31 07:15 | NUR ---
AM ROUNDS- PT IN BED, WITH EYES CLOSED, LT HAND IV SL, CALL LIGHT IN REACH, NAD NOTED, WILL CONTINUE TO MONITOR.
--- NOTE | 2016-12-31 09:11 | NUR ---
ADMINISTERED AM MEDS. PT IN BED, WATCHING TV. PT DENIES ANY NEEDS AT THIS TIME. CALL LIGHT IN REACH, NAD NOTED, WILL CONTINUE TO MONITOR.
[2016-12-31 12:00] VITALS: BP 118/82
--- NOTE | 2016-12-31 12:48 | NUR ---
PT IN LAYING IN BED, EYES CLOSED. CALL LIGHT IN REACH, NAD NOTED, WILL CONTINUE TO MONITOR.
--- NOTE | 2016-12-31 13:09 | NUR ---
PT PRE-OP AT THIS TIME. LITIGATION ASSISTANT TEAM HERE TO TRANSFER PT TO LITIGATION ASSISTANT, NAD NOTED.
--- NOTE | 2016-12-31 14:38 | NUR ---
RECEIVED PT BACK TO ROOM VIA BED, VITAL SIGNS STABLE. ARM SLING NOTED TO LT ARM, ALSO DRESSING TO LT CHEST. PT STILL DROWSY, DENIES ANY PAIN AT THIS TIME. CALL LIGHT IN REACH, NAD NOTED, WILL CONTINUE TO MONITOR.
[2016-12-31 16:00] VITALS: BP 184/74
[2016-12-31 16:30] LABS: BASOPHILS 0.2 % (0-2); EOSINOPHILS 0.6 % (0-7); HEMATOCRIT 46.4 % (42.0-54.0); HEMOGLOBIN 15.3 g/dL (13.5-17.5); IMMATURE GRANULOCYTES 0.3 % (0-5); LYMPHOCYTES 22.7 % (15-50); MCV 94.1 fL (80.0-100.0); MEAN PLATELET VOLUME 11.5 fL (7.4-10.4); NEUTROPHILS 67.2 % (40-80); PLATELET COUNT 211 10x3/uL (130-400); RBC 4.93 10x6/uL (4.20-6.10); RDW 13.6 % (11.5-14.5); WBC 6.5 10x3/uL (4.8-10.8)
--- NOTE | 2016-12-31 16:42 | NUR ---
BLOOD SUGAR OF 227, 4UNITS OF HUMALOG GIVEN PER S/S. PT IN BED, DENIES ANY NEEDS AT THIS TIME. CALL LIGHT IN REACH, NAD NOTED, WILL CONTINUE TO MONITOR.
[2016-12-31 16:56] LABS: CALC OSMOLALITY 288 mosm/kg (275-300); CALCIUM 8.3 mg/dL (8.5-10.1); CARBON DIOXIDE 26.8 mmol/L (21.0-32.0); CHLORIDE - SERUM 105 mmol/L (98-107); POTASSIUM - SERUM 3.8 mmol/L (3.5-5.1); SODIUM 142 mmol/L (136-145); UREA NITROGEN 14 mg/dL (7-18); eGFR NON AFRICAN AMERICAN 78 mL/min (90-120)
[2016-12-31 16:57] LABS: GLUCOSE 190 mg/dL (74-106)
[2016-12-31 19:00] VITALS: BP 145/65
--- NOTE | 2016-12-31 19:31 | NUR ---
RECEIVED REPORT, PT SLEEPING, BED IS LOW, SRX2, CALL LIGHT IN REACH, WILL CONTINUE PLAN OF CARE
[2017-01-01] VITALS: BP 164/69
--- NOTE | 2017-01-01 01:10 | NUR ---
LOG CHIPPER AT BEDSIDE TO OBTAIN VITALS, CALL LIGHT IN REACH. WILL CONTINUE WITH PLAN OF CARE.
--- NOTE | 2017-01-01 03:25 | NUR ---
ASSESSMENT COMPLETE, SEE FLOW SHEET, BED IS LOW, SRX2,CALL LIGHT IN REACH, PT SLEEPING NO DISTRESS NOTICE, WILL CONTINUE PLAN OF CARE
[2017-01-01 04:00] VITALS: BP 167/70
--- NOTE | 2017-01-01 07:20 | NUR ---
ASSESSMENT DONE. DENIES NEEDS
[2017-01-01 08:57] VITALS: BP 161/69
--- NOTE | 2017-01-01 09:28 | NUR ---
RESTS IN BED WITHOUT C/O VOICED. LEFT CHEST DRSG CLEAN AND DRY. LEFT ARM IN SLING. WILL CONT. PLAN OF CARE.
[2017-01-01 12:13] VITALS: BP 129/62
[2017-01-01] MEDS ORDERED: ALDACTONE25 MG PO (12:46)
[2017-01-01] MEDS ORDERED: ENTRESTO 24 MG1 EACH PO (12:46)
--- NOTE | 2017-01-01 14:13 | NUR ---
DC GIVEN TO PT WITH RX
--- NOTE | 2017-01-01 15:00 | NUR ---
DC HOME PER PERSONAL CAR
--- NOTE | 2017-01-02 12:53 | OP ---
PATIENT NAME: EL WILLARD MEDICAL RECORD: [id number] :[birth year] LOCATION:D. D.2123 ADMISSION DATE:12/26/16 SURGEON: KRISTY SAENZ MD DATE OF OPERATION: PROCEDURE: Lead portion of permanent pacemaker placement. DESCRIPTION OF PROCEDURE: After left subclavian was cannulated via modified Seldinger technique, the RV leads were placed in the RV apex without difficulty. After adequate R waves and thresholds were obtained, the leads were attached to the generator and the pocket was closed via Dr. Martin. ASSESSMENT: Successful lead portion of permanent pacemaker placement on El Willard. INDICATIONS: Sick sinus syndrome with tachy as well as bradyarrhythmias. ESTIMATED BLOOD LOSS: Minimal. DISPOSITION: To the floor, stable. COMPLICATIONS: None. TRANSINT:[id number] Voice Confirmation ID: [id number] DOCUMENT ID: [id number] KRISTY SAENZ MD at 1253 CC: WILMER MARTIN MD [id number] DICTATION DATE: 12/31/16 1402 DEHYDRATION UNIT OPERATOR: 01/01/17 0031 DIS IN 01/01/17 [facility] [address] [place] [address]
== END 2017-01-01 15:01 | disposition home or self-care (01) | DRG 243 ==
LOC: D.ER 06:25 → D.SDCHOLD 08:52 → D.M2 08:52 → OBSVTIME 08:53 → D.M2 09:58
PROVIDERS: Emergency Medicine; Internal Medicine Cardiovascular Disease; Internal Medicine Interventional Cardiology; ADMIT Family Medicine
PROC: B2151ZZ Fluoroscopy of Left Heart using Low Osmolar Contrast (ICD-10-PCS; 2016-12-26)
PROC: 0JH606Z Insertion of Pacemaker, Dual Chamber into Chest Subcutaneous Tissue and Fascia, Open Approach (ICD-10-PCS; 2016-12-26)
PROC: 02H63JZ Insertion of Pacemaker Lead into Right Atrium, Percutaneous Approach (ICD-10-PCS; 2016-12-26)
PROC: 4A023N7 Measurement of Cardiac Sampling and Pressure, Left Heart, Percutaneous Approach (ICD-10-PCS; 2016-12-26)
PROC: B2111ZZ Fluoroscopy of Multiple Coronary Arteries using Low Osmolar Contrast (ICD-10-PCS; principal; 2016-12-26 12:30)
PROC: 02HK3JZ Insertion of Pacemaker Lead into Right Ventricle, Percutaneous Approach (ICD-10-PCS; 2016-12-31)
DX: I49.5 Sick sinus syndrome (principal); I47.2 Ventricular tachycardia; I48.92 Unspecified atrial flutter; F17.203 Nicotine dependence unspecified, with withdrawal; I42.9 Cardiomyopathy, unspecified; E87.6 Hypokalemia; E11.65 Type 2 diabetes mellitus with hyperglycemia; F10.20 Alcohol dependence, uncomplicated

== ENCOUNTER 2018-07-04 14:34 | Inpatient (IN) | payer MEDICARE ==
[~2018-07-04] VITALS: Ht 182.9 cm; Wt 103.7 kg
[~2018-07-04 14:34] MED LIST changes: +ALDACTONE25 MG PO; +ENTRESTO 24 MG1 EACH PO; +FUROSEMIDE20 MG PO; +PACERONE200 MG PO
[2018-07-04 15:47] VITALS: BP 122/87
[2018-07-04 16:08] LABS: BASOPHILS 0.1 % (0-2); EOSINOPHILS 0.1 % (0-7); HEMATOCRIT 58.5 % (42.0-54.0); HEMOGLOBIN 18.7 g/dL (13.5-17.5); IMMATURE GRANULOCYTES 0.3 % (0-5); LYMPHOCYTES 12.6 % (15-50); MCH 31.5 pg (26.0-34.0); MCV 98.5 fL (80.0-100.0); MEAN PLATELET VOLUME 11.8 fL (7.4-10.4); MONOCYTES 11.5 % (2-11); NEUTROPHILS 75.4 % (40-80); RBC 5.94 10x6/uL (4.20-6.10); RDW 14.6 % (11.5-14.5); WBC 7.4 10x3/uL (4.8-10.8)
[2018-07-04 16:11] LABS: PLATELET COUNT 156 10x3/uL (130-400)
[2018-07-04 17:25] LABS: ALBUMIN 3.5 g/dL (3.4-5.0); ALKALINE PHOSPHATASE 81 U/L (46-116); ALT (SGPT) 39 U/L (10-68); BILIRUBIN - TOTAL 1.09 mg/dL (0.2-1.3); CALC OSMOLALITY 293 mosm/kg (275-300); CALCIUM 9.1 mg/dL (8.5-10.1); CHLORIDE - SERUM 103 mmol/L (98-107); POTASSIUM - SERUM 4.8 mmol/L (3.5-5.1); PROTEIN - SERUM 7.2 g/dL (6.4-8.2); SODIUM 145 mmol/L (136-145); UREA NITROGEN 26 mg/dL (7-18); eGFR NON AFRICAN AMERICAN 78 mL/min (90-120)
[2018-07-04 17:27] LABS: GLUCOSE 101 mg/dL (74-106)
[2018-07-04 18:03] LABS: APPEARANCE CLEAR (CLEAR); BILIRUBIN 1+ (NEGATIVE); COLOR DK YELLOW (YELLOW); GLUCOSE NEGATIVE (NEGATIVE); KETONE NEGATIVE (NEGATIVE); NITRITE NEGATIVE (NEGATIVE); PROTEIN 1+ mg/dL (NEGATIVE)
[2018-07-04 18:04] LABS: BACTERIA FEW /hpf (NONE SEEN); EPITHELIAL CELLS 0-5 /hpf (0-5); RED CELLS - URINE 0-5 /hpf (0-5); WHITE CELLS - URINE 0-5 /hpf (0-5)
[2018-07-04 18:48] VITALS: BP 110/74
[2018-07-04 20:07] VITALS: BP 96/63
[2018-07-04 22:12] VITALS: BP 101/62
[2018-07-05] VITALS (7 sets, daily range): BP systolic 107–115; BP diastolic 67–77; BMI 21.7
[2018-07-05 10:02] LABS: BASOPHILS 0 % (0-2); EOSINOPHILS 0.8 % (0-7); HEMATOCRIT 51.9 % (42.0-54.0); HEMOGLOBIN 16.5 g/dL (13.5-17.5); IMMATURE GRANULOCYTES 0.1 % (0-5); LYMPHOCYTES 11.4 % (15-50); MCHC 31.8 g/dL (31.0-37.0); MCV 97.6 fL (80.0-100.0); MEAN PLATELET VOLUME 11.6 fL (7.4-10.4); MONOCYTES 9.4 % (2-11); NEUTROPHILS 78.3 % (40-80); PLATELET COUNT 163 10x3/uL (130-400); RBC 5.32 10x6/uL (4.20-6.10); RDW 14.7 % (11.5-14.5); WBC 8.3 10x3/uL (4.8-10.8)
[2018-07-05 10:14] LABS: CALCIUM 8.2 mg/dL (8.5-10.1); CARBON DIOXIDE 30.5 mmol/L (21.0-32.0); CREATININE - SERUM 1.1 mg/dL (0.6-1.3); POTASSIUM - SERUM 4.5 mmol/L (3.5-5.1)
[2018-07-06 05:46] VITALS: BP 107/70
[2018-07-06 08:33] VITALS: BP 107/72
[2018-07-06 09:19] LABS: BASOPHILS 0.1 % (0-2); EOSINOPHILS 0.8 % (0-7); HEMATOCRIT 50.9 % (42.0-54.0); HEMOGLOBIN 16.5 g/dL (13.5-17.5); IMMATURE GRANULOCYTES 0.1 % (0-5); LYMPHOCYTES 11.7 % (15-50); MCH 31.7 pg (26.0-34.0); MCHC 32.4 g/dL (31.0-37.0); MCV 97.7 fL (80.0-100.0); MEAN PLATELET VOLUME 12.1 fL (7.4-10.4); MONOCYTES 10.3 % (2-11); PLATELET COUNT 148 10x3/uL (130-400); RBC 5.21 10x6/uL (4.20-6.10); RDW 14.7 % (11.5-14.5); WBC 7.2 10x3/uL (4.8-10.8)
[2018-07-06 09:28] LABS: ANION GAP 17.2 mmol/L (8-16); CALCIUM 8.3 mg/dL (8.5-10.1); CARBON DIOXIDE 25.4 mmol/L (21.0-32.0); CREATININE - SERUM 1.1 mg/dL (0.6-1.3); POTASSIUM - SERUM 4.6 mmol/L (3.5-5.1)
--- NOTE | 2018-07-06 11:18 | MORECARE ---
CASE MANAGEMENT DISCHARGE SUMMARY PATIENT: LOIDA GUZMAN UNIT: [id number] ADM DATE: 07/04/18 AGE: 73 : 46 SEX: M ROOM/BED: D.2231 AUTHOR: NORMAN MAURICE PHYSICIAN: REFERRING PHYSICIAN: JOSE LUIS TREJO MD DATE OF SERVICE: 07/06/18 Discharge Plan Patient Name: LOIDA GUZMAN [facility] [facility] 1945 Planned Disposition: Home Anticipated Discharge Date: Discharge Date: Expected LOS: Initial Reviewer: [email or web address] Initial Review Date: 07/06/2018 Generated: 07/06/18 12:17 pm Patient Name: LOIDA GUZMAN Page 29584 at 1118 All edits/amendments must be made on the electronic document DICTATION DATE: 07/06/18 111 POULTRY PROCESSOR: MARY 07/06/18 1117 RPT#: [id number] [place] DATE: STATUS: ADM IN [facility] [address] [place] [address] END OF REPORT
--- NOTE | 2018-07-06 11:26 | MORECARE ---
CASE MANAGEMENT DISCHARGE SUMMARY PATIENT: LOIDA WILLARD UNIT: [id number] ADM DATE: 07/04/18 AGE: 73 : 46 SEX: M ROOM/BED: D.2231 AUTHOR: NORMAN MAURICE PHYSICIAN: REFERRING PHYSICIAN: JOSE LUIS TREJO MD DATE OF SERVICE: 07/06/18 Discharge Plan Patient Name: LOIDA WILLARD [facility] [facility] 1945 Planned Disposition: Home Anticipated Discharge Date: Discharge Date: Expected LOS: Initial Reviewer: [email or web address] Initial Review Date: 07/06/2018 Generated: 07/06/18 12:26 pm DCPIA - Discharge Planning Initial Assessment Updated by [email or web address]: Janet Cronin on 07/06/18 11:19 am * Is the patient Alert and Oriented? Yes * How many steps to enter\exit or inside your home? 3/0 * PCP Dr. Fishman * Pharmacy [facility] * Preadmission Environment Home Alone * ADLs Independent * Equipment Glucometer Rolling Walker * List name and contact numbers for known caregivers / representatives who currently or will assist patient after discharge: Angeline Willard - DTR - [phone] [facility] friend - [phone] [facility] - [phone] * Verbal permission to speak to the caregivers and representatives has been obtained from the patient. Yes * Community resources currently utilized None * Additional services required to return to the preadmission environment? Yes * Can the patient safely return to the preadmission environment? Yes * Has this patient been hospitalized within the prior 30 days at any hospital? No Last DP export: 07/06/18 10:17 Patient Name: LOIDA WILLARD Page 43227 at 1126 All edits/amendments must be made on the electronic document DICTATION DATE: 07/06/181124 DIRECTOR DIETETICS DEPARTMENT: MARY 07/06/181124 RPT#: [id number] DC DATE: STATUS: ADM IN [facility] [address] [place] [address] END OF REPORT
--- NOTE | 2018-07-06 11:35 | MORECARE ---
CASE MANAGEMENT DISCHARGE SUMMARY PATIENT: LOIDA WILLARD UNIT: [id number] ADM DATE: 07/04/18 AGE: 73 : [birth year] SEX: M ROOM/BED: D.2231 AUTHOR: JOSAFATDOC PHYSICIAN: REFERRING PHYSICIAN: JOSE LUIS TREJO MD DATE OF SERVICE: 07/06/18 Discharge Plan Patient Name: LOIDA WILLARD Facility: [facility]:[place] : 1945 Planned Disposition: Home Anticipated Discharge Date: Discharge Date: Expected LOS: Initial Reviewer: [email or web address] Initial Review Date: 07/06/2018 Generated: 07/06/18 12:35 pm Comments DCP- Discharge Planning Updated by [email or web address]: Janet Cronin on 07/06/18 10:[address] Patient Name: LOIDA WILLARD Admission Status: ER Accout number: [id number] Admission Date: 07-04-2018 : 1945 Admission Diagnosis: Attending: JOSE LUIS VALLEJO Current LOS: 2 Anticipated DC Date: Planned Disposition: Home Primary Insurance: [employer] Discharge Planning Comments: CM met with patient to discuss discharge planning, he is alone in the room. States he lives alone and is independent. Discussed the availability of rehab, SNF and home health. He states his discharge plan is to return home. I encouraged home health, he has used [facility] in the past, he declines at this time. I informed him that I read the PT notes that he has not been able to walk due to feet pain and may need some help. States he is able to get up and walk by himself slowly. I continued to encourage home health services and will continue to follow and assist with discharge planning/needs. Medical Office Technologist: Janet Cronin DCPIA - Discharge Planning Initial Assessment Updated by [email or web address]: Janet Cronin on 07/06/18 11:19 am * Is the patient Alert and Oriented? Yes * How many steps to enter\exit or inside your home? 3/0 * PCP Dr. Vallejo * Pharmacy [facility] * Preadmission Environment Home Alone * ADLs Independent * Equipment Glucometer Rolling Walker * List name and contact numbers for known caregivers / representatives who currently or will assist patient after discharge: Angeline Willard - DTR - [phone] [facility] friend - [phone] [facility] - [phone] * Verbal permission to speak to the caregivers and representatives has been obtained from the patient. Yes * Community resources currently utilized None * Additional services required to return to the preadmission environment? Yes * Can the patient safely return to the preadmission environment? Yes * Has this patient been hospitalized within the prior 30 days at any hospital? No Last DP export: 07/06/18 10:26 Patient Name: LOIDA WILLARD Page [id number] at 1135 All edits/amendments must be made on the electronic document DICTATION DATE: 07/06/181134 TUBE COVERER: MARY 07/06/181134 RPT#: [id number] DC DATE: STATUS: ADM IN [facility] [address] [place] [address] END OF REPORT
--- NOTE | 2018-07-06 13:24 | EC ---
PATIENT:LOIDA GUZMAN DATE OF SERVICE: 07/04/18 SEX: M MEDICAL RECORD: [id number] DATE OF : [birth year] LOCATION:D.MS [id number] AGE OF PATIENT: 73 ADMISSION DATE: 07/04/18 REFERRING PHYSICIAN: INTERPRETING PHYSICIAN: DARRELL MALIK MD ECHOCARDIOGRAM REPORT ECHO CHARGES 4 ECHO COMPLETE Date: 07/06/18 CLINICAL DIAGNOSIS: CHF HX OF PACEMAKER ECHOCARDIOGRAPHIC MEASUREMENTS (adult normal given) AC root (d.<3.7cm) 3.3 cm LV Septum d (<1.2 cm> 1.4 cm Valve Excursion 1.5 cm LV Septum (systole) 1.5 cm Left Atria (s.<4.0cm> 4.1 cm LVPW d(<1.2cm) 1.5 cm RV (d.<2.3cm) 5.3 cm LVPW (sytole) 1.6 cm LV diastole(<5.6CM) 6.4 cm MV E-F(>70mm/sec) cm LV systole 6.1 cm LVOT Diameter 2.1 cm MV exc.(>10mm) cm Est.ejection fraction (50-75%) % DOPPLER: LVIT cm/sec A 74.0 cm/sec E cm/sec LA cm/sec RVSP 54 mmHg LVOT 57 cm/sec AOP1/2T m/s Asc. Ao 84 cm/sec RVOT 44 cm/sec RA cm/sec PA 52 cm/sec AV Gradient Peak 2.79 mmHg AV Mean 1.67 mmHg AV Area 2.4 cm MV Gradient Peak 4.23 mmHg MV Mean 1.55 mmHg MV Area cm COMMENTS: Poultry And Fish Butcher: 2 GEE YAÑEZ Doll Dresser: 1 Dr. Malik TAPE# PACS Pericardial Effusion N DATE OF SERVICE: FINDINGS: 1. Left ventricular chamber size is dilated. Left ventricular systolic function is markedly reduced. Overall ejection fraction estimates 10% to 15%. There is severe global hypokinesis throughout all segments with no discrete wall motion abnormalities present. 2. Left atrium is enlarged at 4.1 cm. Right atrium and right ventricular chamber sizes are moderately dilated. 3. Valvular structures have normal structure and motion. ECHOCARDIOGRAM REPORT [id number] LOIDA GUZMAN 4. Doppler interrogation reveals qlgk-hj-hukitddm mitral regurgitation, moderate tricuspid regurgitation, no other valvular insufficiency or stenosis. Pulmonary systolic pressure is elevated estimated at 54 mmHg. 5. No evidence of pericardial effusion or left ventricular thrombus. TRANSINT:[id number] Voice Confirmation ID: [id number] DOCUMENT ID: [id number] DARRELL MALIK MD at 1324 CC: [id number] DICTATION DATE: 07/06/18 1110 COMMERCIAL HELICOPTER PILOT: 07/06/18 [address] [facility] [address] [place] [id number]
[2018-07-06 13:47] VITALS: BP 100/64
[2018-07-06 14:39] VITALS: Ht 182.9 cm; Wt 103.7 kg
[2018-07-06 16:00] VITALS: BP 107/58
[2018-07-06 20:00] VITALS: BP 102/52
[2018-07-07] VITALS: BP 102/52
[2018-07-07 04:00] VITALS: BP 118/70
[2018-07-07 05:28] LABS: BASOPHILS 0.1 % (0-2); EOSINOPHILS 0.7 % (0-7); HEMOGLOBIN 16.8 g/dL (13.5-17.5); IMMATURE GRANULOCYTES 0.1 % (0-5); MCH 31.5 pg (26.0-34.0); MCHC 32.3 g/dL (31.0-37.0); MCV 97.4 fL (80.0-100.0); MEAN PLATELET VOLUME 12.1 fL (7.4-10.4); MONOCYTES 11.3 % (2-11); NEUTROPHILS 72.8 % (40-80); PLATELET COUNT 158 10x3/uL (130-400); RBC 5.34 10x6/uL (4.20-6.10); RDW 14.8 % (11.5-14.5); WBC 6.8 10x3/uL (4.8-10.8)
[2018-07-07 05:41] LABS: ANION GAP 11.9 mmol/L (8-16); CALCIUM 8.2 mg/dL (8.5-10.1); CARBON DIOXIDE 30.5 mmol/L (21.0-32.0); CREATININE - SERUM 1.2 mg/dL (0.6-1.3); POTASSIUM - SERUM 4.4 mmol/L (3.5-5.1); VANCOMYCIN - TROUGH 10.1 ug/mL (10.0-20.0)
[2018-07-07 08:37] VITALS: BP 128/90
[2018-07-07 12:45] VITALS: BP 116/75
[2018-07-07 16:18] VITALS: BP 111/74
[2018-07-07 20:54] VITALS: BP 125/86
[2018-07-08 01:05] VITALS: BP 118/89
[2018-07-08 05:12] LABS: BASOPHILS 0.2 % (0-2); EOSINOPHILS 0.8 % (0-7); HEMATOCRIT 50.9 % (42.0-54.0); HEMOGLOBIN 16.6 g/dL (13.5-17.5); IMMATURE GRANULOCYTES 0.2 % (0-5); LYMPHOCYTES 17.3 % (15-50); MCH 31.4 pg (26.0-34.0); MCHC 32.6 g/dL (31.0-37.0); MCV 96.4 fL (80.0-100.0); MEAN PLATELET VOLUME 11.8 fL (7.4-10.4); MONOCYTES 11.1 % (2-11); NEUTROPHILS 70.4 % (40-80); PLATELET COUNT 156 10x3/uL (130-400); RBC 5.28 10x6/uL (4.20-6.10); RDW 14.9 % (11.5-14.5); WBC 6.4 10x3/uL (4.8-10.8)
[2018-07-08 05:23] LABS: CALC OSMOLALITY 281 mosm/kg (275-300); CALCIUM 8.3 mg/dL (8.5-10.1); CARBON DIOXIDE 27.1 mmol/L (21.0-32.0); CHLORIDE - SERUM 104 mmol/L (98-107); GLUCOSE 122 mg/dL (74-106); POTASSIUM - SERUM 4.3 mmol/L (3.5-5.1); SODIUM 140 mmol/L (136-145); UREA NITROGEN 18 mg/dL (7-18); eGFR NON AFRICAN AMERICAN 78 mL/min (90-120)
[2018-07-08 06:29] VITALS: BP 117/85
[2018-07-08 08:43] VITALS: BP 99/72
[2018-07-08 11:49] VITALS: BP 115/77
--- NOTE | 2018-07-08 14:24 | MORECARE ---
CASE MANAGEMENT DISCHARGE SUMMARY PATIENT: LOIDA WILLARD UNIT: [id number] ADM DATE: 07/04/18 AGE: 73 : [birth year] SEX: M ROOM/BED: D.2231 AUTHOR: NORMAN MAURICE PHYSICIAN: REFERRING PHYSICIAN: JOSE LUIS TREJO MD DATE OF SERVICE: 07/08/18 Discharge Plan Patient Name: LOIDA WILLARD Facility: [facility]:[place] : 1945 Planned Disposition: Home Anticipated Discharge Date: Discharge Date: Expected LOS: Initial Reviewer: [email or web address] Initial Review Date: 07/06/2018 Generated: 07/08/18 3:24 pm Comments DCP- Discharge Planning Updated by [email or web address]: Janet Cronin on 07/08/18 1:[address] Met with patient's daughter, Angeline Willard, in the patient's room. She states that she is the patient's next of kin and her correct phone number is [phone]. I have called admissions to have this changed on his face sheet. She states she lives in [place] and is planning on taking her father home with her when he is discharged. She states that she has a hospital bed for him at her home. She states that she is employed at a hospital and will have a primary doctor for him in order to get home health services set up in [place]. CM will continue to follow and assist with discharge planning/needs. Daughter - Angeline Willard - [phone] DCP- Discharge Planning Updated by [email or web address]: Janet Cronin on 07/06/18 10:[address] Patient Name: LOIDA WILLARD Admission Status: ER Accout number: [id number] Admission Date: 07-04-2018 : 1945 Admission Diagnosis: Attending: JOSE LUIS VALLEJO Current LOS: 2 Anticipated DC Date: Planned Disposition: Home Primary Insurance: [employer] Discharge Planning Comments: CM met with patient to discuss discharge planning, he is alone in the room. States he lives alone and is independent. Discussed the availability of rehab, SNF and home health. He states his discharge plan is to return home. I encouraged home health, he has used [facility] in the past, he declines at this time. I informed him that I read the PT notes that he has not been able to walk due to feet pain and may need some help. States he is able to get up and walk by himself slowly. I continued to encourage home health services and will continue to follow and assist with discharge planning/needs. Marketing Communications Assistant: Janet Cronin DCPIA - Discharge Planning Initial Assessment Updated by [email or web address]: Janet Cronin on 07/06/18 11:19 am * Is the patient Alert and Oriented? Yes * How many steps to enter\exit or inside your home? 3/0 * PCP Dr. Vallejo * Pharmacy [facility] * Preadmission Environment Home Alone * ADLs Independent * Equipment Glucometer Rolling Walker * List name and contact numbers for known caregivers / representatives who currently or will assist patient after discharge: Angeline Willard - DTR - [phone] [facility] friend - [phone] [facility] - [phone] * Verbal permission to speak to the caregivers and representatives has been obtained from the patient. Yes * Community resources currently utilized None * Additional services required to return to the preadmission environment? Yes * Can the patient safely return to the preadmission environment? Yes * Has this patient been hospitalized within the prior 30 days at any hospital? No Last DP export: 07/06/18 10:35 Patient Name: LOIDA WILLARD Page 94822 at 7474 All edits/amendments must be made on the electronic document DICTATION DATE: 07/08/181423 HOME AGENT: MARY 07/08/181423 RPT#: [id number] DC DATE: STATUS: ADM IN [facility] [address] [place] [address] END OF REPORT
[2018-07-08 16:12] VITALS: BP 104/67
[2018-07-08 20:00] VITALS: BP 118/78
[2018-07-09 00:43] VITALS: BP 129/80
[2018-07-09 04:00] VITALS: BP 134/87
[2018-07-09 05:16] LABS: BASOPHILS 0.2 % (0-2); HEMATOCRIT 50.1 % (42.0-54.0); HEMOGLOBIN 16.5 g/dL (13.5-17.5); IMMATURE GRANULOCYTES 0.2 % (0-5); LYMPHOCYTES 18.1 % (15-50); MCH 31.8 pg (26.0-34.0); MCHC 32.9 g/dL (31.0-37.0); MCV 96.5 fL (80.0-100.0); MEAN PLATELET VOLUME 12.1 fL (7.4-10.4); MONOCYTES 11.3 % (2-11); NEUTROPHILS 69.2 % (40-80); PLATELET COUNT 157 10x3/uL (130-400); RBC 5.19 10x6/uL (4.20-6.10); RDW 15.1 % (11.5-14.5); WBC 6.3 10x3/uL (4.8-10.8)
[2018-07-09 06:03] LABS: CALC OSMOLALITY 280 mosm/kg (275-300); CALCIUM 8.6 mg/dL (8.5-10.1); CARBON DIOXIDE 26.8 mmol/L (21.0-32.0); CHLORIDE - SERUM 104 mmol/L (98-107); GLUCOSE 122 mg/dL (74-106); POTASSIUM - SERUM 4.5 mmol/L (3.5-5.1); SODIUM 139 mmol/L (136-145); UREA NITROGEN 18 mg/dL (7-18); eGFR NON AFRICAN AMERICAN 78 mL/min (90-120)
[2018-07-09 08:34] VITALS: BP 134/84
--- NOTE | 2018-07-09 12:27 | MORECARE ---
CASE MANAGEMENT DISCHARGE SUMMARY PATIENT: LOIDA WILLARD UNIT: [id number] ADM DATE: 07/04/18 AGE: 73 : 47 SEX: M ROOM/BED: D.2231 AUTHOR: NORMAN MAURICE PHYSICIAN: REFERRING PHYSICIAN: JOSE LUIS TREJO MD DATE OF SERVICE: 07/09/18 Discharge Plan Patient Name: LOIDA WILLARD Facility: [facility]:[place] : 1945 Planned Disposition: Home Anticipated Discharge Date: Discharge Date: Expected LOS: Initial Reviewer: [email or web address] Initial Review Date: 07/06/2018 Generated: 07/09/18 1:26 pm Comments DCP- Discharge Planning Updated by [email or web address]: Janet Cronin on 07/08/18 1:[address] Met with patient's daughter, Angeline Willard, in the patient's room. She states that she is the patient's next of kin and her correct phone number is [phone]. I have called admissions to have this changed on his face sheet. She states she lives in [place] and is planning on taking her father home with her when he is discharged. She states that she has a hospital bed for him at her home. She states that she is employed at a hospital and will have a primary doctor for him in order to get home health services set up in [place]. CM will continue to follow and assist with discharge planning/needs. Daughter - Angeline Willard - [phone] DCP- Discharge Planning Updated by [email or web address]: Janet Cronin on 07/06/18 10:[address] Patient Name: LOIDA WILLARD Admission Status: ER Accout number: [id number] Admission Date: 07-04-2018 : 1945 Admission Diagnosis: Attending: JOSE LUIS VALLEJO Current LOS: 2 Anticipated DC Date: Planned Disposition: Home Primary Insurance: [employer] Discharge Planning Comments: CM met with patient to discuss discharge planning, he is alone in the room. States he lives alone and is independent. Discussed the availability of rehab, SNF and home health. He states his discharge plan is to return home. I encouraged home health, he has used [facility] in the past, he declines at this time. I informed him that I read the PT notes that he has not been able to walk due to feet pain and may need some help. States he is able to get up and walk by himself slowly. I continued to encourage home health services and will continue to follow and assist with discharge planning/needs. Box Lidder: Janet Cronin DCPIA - Discharge Planning Initial Assessment Updated by [email or web address]: Janet Cronin on 07/06/18 11:19 am * Is the patient Alert and Oriented? Yes * How many steps to enter\exit or inside your home? 3/0 * PCP Dr. Vallejo * Pharmacy [facility] * Preadmission Environment Home Alone * ADLs Independent * Equipment Glucometer Rolling Walker * List name and contact numbers for known caregivers / representatives who currently or will assist patient after discharge: Angeline Willard - DTR - [phone] [facility] friend - [phone] [facility] - [phone] * Verbal permission to speak to the caregivers and representatives has been obtained from the patient. Yes * Community resources currently utilized None * Additional services required to return to the preadmission environment? Yes * Can the patient safely return to the preadmission environment? Yes * Has this patient been hospitalized within the prior 30 days at any hospital? No Last DP export: 07/08/18 1:24 Patient Name: LOIDA WILLARD Page 55620 at 1227 All edits/amendments must be made on the electronic document DICTATION DATE: 07/09/181225 MECHANICAL ENGINEERING PROFESSOR: MARY 07/09/181225 RPT#: [id number] DC DATE: STATUS: ADM IN [facility] [address] [place] [address] END OF REPORT
[2018-07-09 16:04] LABS: MAGNESIUM - SERUM 1.9 mg/dL (1.8-2.4); THYROID STIMULATING HORMONE 4.32 uIU/mL (0.36-3.74)
[2018-07-09 20:00] VITALS: BP 103/72
[2018-07-10] VITALS: BP 113/55
[2018-07-10 04:00] VITALS: BP 92/61
[2018-07-10 05:29] LABS: BASOPHILS 0.1 % (0-2); EOSINOPHILS 1.2 % (0-7); HEMATOCRIT 53.8 % (42.0-54.0); HEMOGLOBIN 17.3 g/dL (13.5-17.5); IMMATURE GRANULOCYTES 0.3 % (0-5); MCH 31.6 pg (26.0-34.0); MCHC 32.2 g/dL (31.0-37.0); MCV 98.4 fL (80.0-100.0); MEAN PLATELET VOLUME 12.5 fL (7.4-10.4); MONOCYTES 10.2 % (2-11); NEUTROPHILS 73.2 % (40-80); PLATELET COUNT 175 10x3/uL (130-400); RBC 5.47 10x6/uL (4.20-6.10); RDW 15.3 % (11.5-14.5); WBC 7.3 10x3/uL (4.8-10.8)
[2018-07-10 06:10] LABS: ANION GAP 14.8 mmol/L (8-16); CALCIUM 8.2 mg/dL (8.5-10.1); CARBON DIOXIDE 26.1 mmol/L (21.0-32.0); POTASSIUM - SERUM 4.9 mmol/L (3.5-5.1)
[2018-07-10 06:12] LABS: CREATININE - SERUM 1.3 mg/dL (0.6-1.3)
[2018-07-10 08:07] VITALS: BP 77/49
[2018-07-10 11:32] VITALS: BP 83/53
[2018-07-10 15:39] VITALS: BP 99/45
[2018-07-10 20:30] VITALS: BP 95/57
[2018-07-11 00:30] VITALS: BP 102/60
[2018-07-11 04:30] VITALS: BP 90/54
[2018-07-11 08:16] VITALS: BP 90/46
[2018-07-11 11:21] VITALS: BP 90/51
[2018-07-11 15:55] VITALS: BP 92/48
[2018-07-11 20:30] VITALS: BP 94/42
[2018-07-12] VITALS (67 sets, daily range): BP systolic 74–130; BP diastolic 43–104
[2018-07-12 06:41] LABS: BASOPHILS 0.5 % (0-2); EOSINOPHILS 0.1 % (0-7); HEMATOCRIT 58.1 % (42.0-54.0); HEMOGLOBIN 18.5 g/dL (13.5-17.5); IMMATURE GRANULOCYTES 1.2 % (0-5); LYMPHOCYTES 4.4 % (15-50); MCHC 31.8 g/dL (31.0-37.0); MCV 99.5 fL (80.0-100.0); MEAN PLATELET VOLUME 12.8 fL (7.4-10.4); MONOCYTES 5.3 % (2-11); NEUTROPHILS 88.5 % (40-80); RBC 5.84 10x6/uL (4.20-6.10); RDW 15.6 % (11.5-14.5); WBC 13.2 10x3/uL (4.8-10.8)
[2018-07-12 06:44] LABS: MCH 31.8 pg (26.0-34.0); PLATELET COUNT 107 10x3/uL (130-400)
[2018-07-12 07:52] LABS: ANION GAP 21.7 mmol/L (8-16); CALCIUM 8.9 mg/dL (8.5-10.1); CARBON DIOXIDE 22.7 mmol/L (21.0-32.0)
[2018-07-12 07:54] LABS: POTASSIUM - SERUM 6.4 mmol/L (3.5-5.1)
--- NOTE | 2018-07-12 21:06 | OP ---
PATIENT NAME: LOIDA GUZMAN MEDICAL RECORD: [id number] :[birth year] LOCATION:.[facility] D.2308 ADMISSION DATE:07/04/18 SURGEON: CRISTI MARTIN MD DATE OF OPERATION: 07/12/2018 PREOPERATIVE DIAGNOSES: 1. Bibasilar pneumonia. 2. Acute renal failure in need of venous access for hemodialysis. 3. Ventilatory failure requiring mechanical ventilation. POSTOPERATIVE DIAGNOSES: 1. Bibasilar pneumonia. 2. Acute renal failure in need of venous access for hemodialysis. 3. Ventilatory failure requiring mechanical ventilation. PROCEDURE: Insertion of right internal jugular Trialysis catheter (non-tunneled, non-cuffed triple lumen hemodialysis catheter). SURGEON: Cristi Martin MD BALANCER: None. BLOOD LOSS: Minimal ANESTHESIA: Local. COMPLICATIONS: None. The risks, possible complications and alternatives to procedure were explained. A consent form was signed. OPERATIVE COURSE: The patient was seen in his ICU bed. He was seen in his ICU bed. He was positioned in Trendelenburg position. The right neck was sterilely prepped and draped. The sterile ultrasound was brought onto the field. I was able to visualize a compressible right internal jugular vein. The area was infiltrated with a local anesthetic. I percutaneously accessed the right internal jugular vein in an antegrade fashion. A guidewire passed easily. A small skin racheal was accomplished. A vessel dilator was used to dilate a subcutaneous tract. A short Trialysis catheter was inserted to the hub. It was sutured in place times 3. All lumens flushed easily and aspirated dark, nonpulsatile blood. A sterile dressing was applied. A stat portable chest x-ray is pending. TRANSINT:[id number] Voice Confirmation ID: [id number] DOCUMENT ID: [id number] CRISTI MARTIN MD at 2106 CC: [id number] DICTATION DATE: 07/12/182034 TILE MOLDER: 07/12/182100 ADM IN [place] [id number] [place] [id number]
[2018-07-12 23:34] LABS: ANION GAP 16.4 mmol/L (8-16); CALCIUM 8.1 mg/dL (8.5-10.1); CARBON DIOXIDE 25.8 mmol/L (21.0-32.0); CREATININE - SERUM 2.6 mg/dL (0.6-1.3)
[2018-07-12 23:35] LABS: POTASSIUM - SERUM 5.2 mmol/L (3.5-5.1)
[2018-07-13] VITALS (93 sets, daily range): BP systolic 77–139; BP diastolic 35–93
[2018-07-13 05:37] LABS: BASOPHILS 0.1 % (0-2); EOSINOPHILS 0 % (0-7); HEMOGLOBIN 17.7 g/dL (13.5-17.5); IMMATURE GRANULOCYTES 0.3 % (0-5); LYMPHOCYTES 8.3 % (15-50); MCH 31.6 pg (26.0-34.0); MEAN PLATELET VOLUME 12.1 fL (7.4-10.4); NEUTROPHILS 82.3 % (40-80); RBC 5.61 10x6/uL (4.20-6.10); WBC 12.4 10x3/uL (4.8-10.8)
[2018-07-13 05:59] LABS: ANION GAP 19.8 mmol/L (8-16); CALCIUM 8.1 mg/dL (8.5-10.1); CARBON DIOXIDE 23.2 mmol/L (21.0-32.0); CREATININE - SERUM 2.7 mg/dL (0.6-1.3)
[2018-07-13 06:18] LABS: MCV 92.7 fL (80.0-100.0); PLATELET COUNT 223 10x3/uL (130-400)
[2018-07-14] VITALS (90 sets, daily range): BP systolic 76–133; BP diastolic 46–107
[2018-07-14 06:15] LABS: BASOPHILS 0.1 % (0-2); EOSINOPHILS 0.5 % (0-7); HEMATOCRIT 47.7 % (42.0-54.0); HEMOGLOBIN 16.3 g/dL (13.5-17.5); IMMATURE GRANULOCYTES 0.3 % (0-5); LYMPHOCYTES 9.6 % (15-50); MCH 31.3 pg (26.0-34.0); MCHC 34.2 g/dL (31.0-37.0); MCV 91.6 fL (80.0-100.0); MEAN PLATELET VOLUME 11.5 fL (7.4-10.4); MONOCYTES 13.1 % (2-11); NEUTROPHILS 76.4 % (40-80); PLATELET COUNT 183 10x3/uL (130-400); RBC 5.21 10x6/uL (4.20-6.10); WBC 11.9 10x3/uL (4.8-10.8)
[2018-07-14 06:42] LABS: ANION GAP 14.1 mmol/L (8-16); CALCIUM 7.7 mg/dL (8.5-10.1); CARBON DIOXIDE 26.4 mmol/L (21.0-32.0); POTASSIUM - SERUM 4.5 mmol/L (3.5-5.1)
[2018-07-15] VITALS (58 sets, daily range): BP systolic 40–124; BP diastolic 33–109
[2018-07-15 04:51] LABS: BASOPHILS 0.1 % (0-2); EOSINOPHILS 1.3 % (0-7); HEMATOCRIT 47.6 % (42.0-54.0); HEMOGLOBIN 16.2 g/dL (13.5-17.5); IMMATURE GRANULOCYTES 0.3 % (0-5); LYMPHOCYTES 6.6 % (15-50); MCH 31.3 pg (26.0-34.0); MCV 92.1 fL (80.0-100.0); MEAN PLATELET VOLUME 11.2 fL (7.4-10.4); MONOCYTES 11.4 % (2-11); NEUTROPHILS 80.3 % (40-80); PLATELET COUNT 158 10x3/uL (130-400); RBC 5.17 10x6/uL (4.20-6.10); RDW 15.1 % (11.5-14.5); WBC 12.6 10x3/uL (4.8-10.8)
[2018-07-15 04:59] LABS: ANION GAP 11.4 mmol/L (8-16); CALCIUM 7.3 mg/dL (8.5-10.1); CARBON DIOXIDE 28.9 mmol/L (21.0-32.0); CREATININE - SERUM 1.5 mg/dL (0.6-1.3); POTASSIUM - SERUM 4.3 mmol/L (3.5-5.1)
--- NOTE | 2018-07-15 14:56 | CN ---
PATIENT NAME:LOIDA GUZMAN MEDICAL RECORD: [id number] : [birth year] LOCATION:[facility].2308 ADMIT DATE: 07/04/18 ACCOUNT: [id number] CONSULTING PHYSICIAN: DARRELL DENISE MD REFERRING PHYSICIAN: JOSE LUIS TREJO MD DATE OF CONSULTATION: 07/09/2018 CARDIOLOGY CONSULT DIAGNOSES: 1. Pneumonia. 2. Shortness of breath and dyspnea on exertion. 3. Atrial fibrillation with rapid ventricular response. 4. Nonischemic cardiomyopathy. 5. Congestive heart failure, chronic systolic dysfunction. HISTORY: This is a gentleman who presents with shortness of breath, found to have pneumonia as well as congestive heart failure. He has a known cardiomyopathy with ejection fraction in 10% to 15% range. He is now in atrial fibrillation. He has a history of atrial fibrillation. He was on amiodarone as an outpatient. This had not been continued. His rate is fast. He is on a Cardizem drip. PHYSICAL EXAMINATION: GENERAL APPEARANCE: Well-nourished, well-developed, appears stated age. Level of distress, comfortable. PSYCHIATRIC: Mental status, alert, normal affect. Orientation, oriented to time, place and person. EYES: Lids and conjunctiva, noninjected. No discharge, no pallor. ENT: Lips, teeth, gums, normal dentition. Oropharynx, no cyanosis, no pallor. NECK: Carotid arteries, bilateral normal upstroke, no bruits, no thrills. JUGULAR VEINS: No jugular venous pressure or distention. CERVICAL LYMPH NODES: Nontender, nonenlarged. THYROID: Not enlarged. Nontender. No nodules. LUNGS: Respiratory effort, unlabored. CHEST: Normal curvature. No thoracic deformity. No chest wall tenderness. Percussion, resonant. Auscultation, clear. No wheezes, no rales, no rhonchi. CARDIOVASCULAR: Irregularly irregular and tachycardic with atrial fibrillation. EXTREMITIES: No cyanosis, no edema. Peripheral pulses, full and equal in all extremities, except as noted. No bruits appreciated. ABDOMEN: Soft, nondistended. Normal aorta. No bruit. Nontender. No masses. Liver, nontender, no hepatomegaly. Spleen, nontender, no splenomegaly. MUSCULOSKELETAL: No joint tenderness. No joint swelling. No erythema. NEUROLOGICAL: Normal gait, normal strength, normal tone. SKIN: Warm and dry. OVERALL IMPRESSION: Atrial fibrillation. At this time, we will start sotalol 120 mg b.i.d. p.o. and continue the Cardizem drip. When the rate is controlled and/or he converts, would discontinue the Cardizem drip and continue the sotalol in place of the amiodarone as it has better AV blocking properties. TRANSINT:[id number] Voice Confirmation ID: [id number] DOCUMENT ID: [id number] CONSULT REPORT [id number] LOIDA GUZMAN, DARRELL GUTIÉRREZ at 1456 CC: [id number] DICTATION DATE: 07/09/18 1414 FOUNDRY PROCESS ENGINEER: 07/09/18 1852 ADM IN [place] [address] [place] [address]
--- NOTE | 2018-07-15 15:07 | CN ---
PATIENT NAME:LOIDA WILLARD MEDICAL RECORD: [id number] : [birth year] LOCATION:[facility].2308 ADMIT DATE: 07/04/18 ACCOUNT: [id number] CONSULTING PHYSICIAN: KACY JOHNSON MD REFERRING PHYSICIAN: JOSE LUIS TREJO MD DATE OF CONSULTATION: 07/12/2018 CONSULT REQUESTING PHYSICIAN: Diaz Santiago MD REASON FOR CONSULTATION: Vent management. HISTORY OF PRESENT ILLNESS: Mr. Willard is a 73-year-old gentleman who was admitted with ulcer of the lower extremity. The patient coded early this morning and transferred to the ICU. Now, the patient is orally intubated and sedated. The history was taken mainly by reviewing the patient's note and talking to the nursing staff. REVIEW OF SYSTEMS: As in history of present illness. PAST MEDICAL HISTORY: 1. Congestive heart failure. 2. Diabetes mellitus. 3. Pneumonia. 4. Cirrhosis of liver. 5. Arthritis. 6. Chronic backache. 7. Diabetic ulcers. PAST SURGICAL HISTORY: He has tonsillectomy and status post pacemaker placement. ALLERGIES: No known drug allergy. MEDICATIONS: RocketOn is reviewed. PERSONAL AND SOCIAL HISTORY: The patient is an ex-smoker. He is also drinking on a regular basis. FAMILY HISTORY: Significant for hypertension. PHYSICAL EXAMINATION: GENERAL: Now, the patient is orally intubated and sedated. VITAL SIGNS: The blood pressure is 112/104, pulse is 66, respirations 16, temperature is 97.9, SpO2 96% on assist control mechanical ventilation. HEENT: Conjunctivae are pink. Sclerae are not icteric. NECK: The pupils are 2-3 mm in size and reactive to light. NECK: Supple. There is elevated JVD. CHEST: The chest excursion is minimal on both sides with bilateral crackles. No wheezing. HEART: Rate and rhythm is regular. Normal sound. There are grade II/ systolic murmur. ABDOMEN: Soft, bowel sounds present. RECTAL: Deferred. EXTREMITIES: No cyanosis, no clubbing. There are 2+ pedal edema. CENTRAL NERVOUS SYSTEM: The patient is orally intubated and sedated. CONSULT REPORT [id number] LOIDA WILLARD CHEST RADIOGRAPH: The ET tube is in good position. There is a right pleural effusion, more than the left. OTHER LABORATORY DATA: CBC: WBC 13.2, hemoglobin 18.5, hematocrit 58.1, the platelet count is 107. Chemistry: Sodium 140, potassium 6.4, chloride 102, BUN is 49, creatinine is 3. ABG: The pH is 7.21, pCO2 is 56, pO2 is 134, bicarbonate is 22.9. IMPRESSION: 1. Acute hypoxic-hypercapnic respiratory failure. 2. Cardiopulmonary arrest. 3. Respiratory acidosis. 4. Hyperkalemia. 5. Acute on chronic renal failure. 6. Pulmonary hypertension, moderate severe degree with right ventricular systolic pressure of 54. 7. Congestive heart failure with chronic diastolic dysfunction. 8. Bilateral pulmonary effusion, right more than the left. 9. Cirrhosis of liver. RECOMMENDATION: 1. Continue mechanical ventilation, assist control, adjust the setting. 2. Deep venous thrombosis and GI bleed prophylaxis. 3. To keep the systolic blood pressure above 90. 4. Nephrology has been consulted. 5. Xopenex nebulizer. 6. Follow up labs and chest radiograph. 7. Discussed with RN and RT. Dr. Santiago, thank you for involving me in the care of Mr. Willard. The critical care time is 50 minutes. TRANSINT:[id number] Voice Confirmation ID: [id number] DOCUMENT ID: [id number] KACY JOHNSON MD at 1507 CC: [id number] DICTATION DATE: 07/12/18 1508 SCRAP DROP OPERATOR: 07/12/18 1606 ADM IN [facility] [address] [place] [address]
--- NOTE | 2018-07-16 09:45 | MORECARE ---
CASE MANAGEMENT DISCHARGE SUMMARY PATIENT: LOIDA WILLARD UNIT: [id number] ADM DATE: 07/04/18 AGE: 73 : [birth year] SEX: M ROOM/BED: D.2308 AUTHOR: NORMAN MAURICE PHYSICIAN: REFERRING PHYSICIAN: JOSE LUIS TREJO MD DATE OF SERVICE: 07/16/18 Discharge Plan Patient Name: LOIDA WILLARD Facility: [facility]:[place] : 1945 Planned Disposition: Home Anticipated Discharge Date: Discharge Date: 07/15/2018 Expected LOS: Initial Reviewer: [email or web address] Initial Review Date: 07/06/2018 Generated: 07/16/18 10:45 am Comments DCP- Discharge Planning Updated by [email or web address]: Janet Cronin on 07/08/18 1:[address] Met with patient's daughter, Angeline Willard, in the patient's room. She states that she is the patient's next of kin and her correct phone number is [phone]. I have called admissions to have this changed on his face sheet. She states she lives in [place] and is planning on taking her father home with her when he is discharged. She states that she has a hospital bed for him at her home. She states that she is employed at a hospital and will have a primary doctor for him in order to get home health services set up in [place]. CM will continue to follow and assist with discharge planning/needs. Daughter - Angeline Willard - [phone] DCP- Discharge Planning Updated by [email or web address]: Janet Cronin on 07/06/18 10:[address] Patient Name: LOIDA WILLARD Admission Status: ER Accout number: [id number] Admission Date: 07-04-2018 : 1945 Admission Diagnosis: Attending: JOSE LUIS VALLEJO Current LOS: 2 Anticipated DC Date: Planned Disposition: Home Primary Insurance: [employer] Discharge Planning Comments: CM met with patient to discuss discharge planning, he is alone in the room. States he lives alone and is independent. Discussed the availability of rehab, SNF and home health. He states his discharge plan is to return home. I encouraged home health, he has used [facility] in the past, he declines at this time. I informed him that I read the PT notes that he has not been able to walk due to feet pain and may need some help. States he is able to get up and walk by himself slowly. I continued to encourage home health services and will continue to follow and assist with discharge planning/needs. Molded Parts Inspector: Janet Cronin DCPIA - Discharge Planning Initial Assessment Updated by [email or web address]: Janet Cronin on 07/06/18 11:19 am * Is the patient Alert and Oriented? Yes * How many steps to enter\exit or inside your home? 3/0 * PCP Dr. Vallejo * Pharmacy [facility] * Preadmission Environment Home Alone * ADLs Independent * Equipment Glucometer Rolling Walker * List name and contact numbers for known caregivers / representatives who currently or will assist patient after discharge: Angeline Willard - DTR - [phone] [facility] friend - [phone] [facility] neighbor - [phone] * Verbal permission to speak to the caregivers and representatives has been obtained from the patient. Yes * Community resources currently utilized None * Additional services required to return to the preadmission environment? Yes * Can the patient safely return to the preadmission environment? Yes * Has this patient been hospitalized within the prior 30 days at any hospital? No Last DP export: 07/09/18 11:27 Patient Name: LOIDA WILLARD Page 94136 at 0945 All edits/amendments must be made on the electronic document DICTATION DATE: 07/16/18943 PAPER TUBE CUTTER: MARY 07/16/18943 RPT#: [id number] DC DATE:07/15/18 STATUS: DIS IN [facility] [address] [place] [address] END OF REPORT
== END 2018-07-15 19:00 | DRG 987 ==
LOC: D.ER 14:34 → D.MS 18:37 → D.EDHOLD 18:37 → D.ICU 18:37 → D.M2 18:37 → D.MS 23:18 → D.M2 07-09 12:40 → D.ICU 07-12 05:44
PROVIDERS: Emergency Medicine; Internal Medicine Nephrology; ADMIT Family Medicine Adult Medicine
PROC: 0J9R0ZZ Drainage of Left Foot Subcutaneous Tissue and Fascia, Open Approach (ICD-10-PCS; principal; 2018-07-06)
PROC: 0H9MXZZ Drainage of Right Foot Skin, External Approach (ICD-10-PCS; 2018-07-06)
PROC: 0HBNXZZ Excision of Left Foot Skin, External Approach (ICD-10-PCS; 2018-07-08)
PROC: 0HBMXZZ Excision of Right Foot Skin, External Approach (ICD-10-PCS; 2018-07-08)
PROC: 05HY33Z Insertion of Infusion Device into Upper Vein, Percutaneous Approach (ICD-10-PCS; 2018-07-08)
PROC: 5A1945Z Respiratory Ventilation, 24-96 Consecutive Hours (ICD-10-PCS; 2018-07-12)
PROC: 0BH17EZ Insertion of Endotracheal Airway into Trachea, Via Natural or Artificial Opening (ICD-10-PCS; 2018-07-12)
PROC: 05HM33Z Insertion of Infusion Device into Right Internal Jugular Vein, Percutaneous Approach (ICD-10-PCS; 2018-07-12)
DX: E11.51 Type 2 diabetes mellitus with diabetic peripheral angiopathy without gangrene (principal); I50.23 Acute on chronic systolic (congestive) heart failure; J18.9 Pneumonia, unspecified organism; J96.01 Acute respiratory failure with hypoxia; J96.02 Acute respiratory failure with hypercapnia; L97.429 Non-pressure chronic ulcer of left heel and midfoot with unspecified severity; L03.116 Cellulitis of left lower limb; L03.115 Cellulitis of right lower limb; N17.9 Acute kidney failure, unspecified; E87.2 Acidosis; I42.9 Cardiomyopathy, unspecified; I46.9 Cardiac arrest, cause unspecified; E11.621 Type 2 diabetes mellitus with foot ulcer; L97.519 Non-pressure chronic ulcer of other part of right foot with unspecified severity; I27.20 Pulmonary hypertension, unspecified; E87.5 Hyperkalemia; E11.22 Type 2 diabetes mellitus with diabetic chronic kidney disease; N18.9 Chronic kidney disease, unspecified; I48.91 Unspecified atrial fibrillation